=== PATIENT | male | born 1940 | race Caucasian/White ===

== ENCOUNTER 2017-07-18 17:05 | Emergency (ER) | payer MEDICARE ==
--- NOTE | 2017-07-18 17:18 | UC ---
Epistaxis Nasal HPI - HPI Summary HPI Summary: 76 year old male with right sided nose bleed. - History of Current Complaint Stated Complaint: NOSE BLEEDS (ON BLOOD THINNERS) Time Seen by Provider: 07/18/17 17:17 Hx Obtained From: Patient Onset/Duration: Sudden Onset Timing: Constant Severity Initially: Moderate Severity Currently: Moderate - Allergies/Home Medications Allergies/Adverse Reactions: Allergies Allergy/AdvReac Type Severity Reaction Status Date / Time Azithromycin Allergy Rash Verified 07/18/17 17:22 Clopidogrel [From Plavix] Allergy Unknown Verified 07/18/17 17:22 Reaction Details Ezetimibe [From Zetia] Allergy Unknown Verified 07/18/17 17:22 Reaction Details Statins Allergy Muscle Ache Verified 07/18/17 17:22 Home Medications: Home Medications Carvedilol [Coreg] 12.5 mg PO BID 07/18/17 [History Confirmed 07/18/17] PMH/Surg Hx/FS Hx/Imm Hx Previously Healthy: Yes - Surgical History Surgical History: Yes Surgery Procedure, Year, and Place: stents, quadruple bypass - Social History Alcohol Use: None Substance Use Type: None Smoking Status (MU): Never Smoked Tobacco Review of Systems Constitutional: Negative Skin: Negative Eyes: Negative ENT: Epistaxis Respiratory: Negative Cardiovascular: Negative Gastrointestinal: Negative Genitourinary: Negative Motor: Negative Neurovascular: Negative Musculoskeletal: Negative Neurological: Negative Psychological: Negative All Other Systems Reviewed And Are Negative: Yes Physical Exam Triage Information Reviewed: Yes Vital Signs Reviewed: Yes Eye Exam: Normal ENT: Positive: Other - right sided nose bleed Dental Exam: Normal Neck exam: Normal Neck: Positive: 1 Respiratory Exam: Normal Cardiovascular Exam: Normal Abdominal Exam: Normal Musculoskeletal Exam: Normal Neurological Exam: Normal Psychological Exam: Normal Skin Exam: Normal Epistaxis Nasal Course/Dx - Differential Dx/Diagnosis Provider Diagnoses: right sided nose bleed Discharge - Discharge Plan Condition: Stable Disposition: HOME Patient Education Materials: Nosebleed (ED) Referrals: Shaquille Manriquez MD [Medical Doctor] - Pita Morales MD [Primary Care Provider] -
[2017-07-18 17:22] VITALS: BP 158/70
[2017-07-18] MEDS ORDERED: Phenylephrine 1% NASAL* 15 ML BOT RIGHT NARE ONE (17:40)
[2017-07-18] MEDS ORDERED: Phenylephrine 1% NASAL* 15 ML BOT ONE (17:42)
== END 2017-07-18 18:04 | disposition home or self-care (01) ==
LOC: UCCORT 17:05
DX: R04.0 Epistaxis (principal); Z88.1 Allergy status to other antibiotic agents; Z88.8 Allergy status to other drugs, medicaments and biological substances
CPT/HCPCS: 30901; 99212; A9270-GY; G0463

== ENCOUNTER 2017-11-21 14:34 | Emergency (ER) | payer MEDICARE ==
[2017-11-21 19:09] LABS: ABS Basophils 0.1 10^3/ul (0-0.2); ABS Eosinophils 0.3 10^3/ul (0-0.6); ABS Lymphocytes 0.6 10^3/ul (1.0-4.8); ABS Monocytes 0.8 10^3/ul (0-0.8); ABS Neutrophils 3.3 10^3/ul (1.5-7.7); ABS Nucleated RBC 0 10^3/ul; Eosinophil % 5.1 % (0-6); Hematocrit 34 % (42-52); Hemoglobin 11.8 g/dl (14.0-18.0); Lymphocyte % 12.5 % (25-47); Mean Corpuscular HGB Conc 35 g/dl (31-36); Mean Corpuscular Hemoglobin 31 pg (27-31); Mean Corpuscular Volume 88 fL (80-94); Nucleated Red Blood Cells % 0.1; Platelet Count 174 10^3/ul (150-450); Red Blood Count 3.87 10^6/ul (4.0-5.4); Red Cell Distribution Width 15 % (10.5-15)
[2017-11-21 19:21] LABS: INR 1.34 (0.77-1.02)
[2017-11-21 19:25] LABS: EGFR Non-African American 92.4 (>60)
--- NOTE | 2017-11-21 19:28 | RAD ---
Indication: Shortness of breath post fall yesterday. Increased bilateral lower extremity swelling. Comparison: June 14, 2017 CT and August 11, 2014 chest radiograph. Technique: Upright AP 1914 hours Report: Median sternotomy wires. Cardiomegaly which appears increased. Prominent ill-defined central pulmonary vasculature and mild diffuse prominence of the interstitial markings with subtle thickened peripheral interlobular septa. Probable trace pleural effusions. Negative for pneumothorax. No fracture evident. IMPRESSION: Pulmonary vascular congestion and interstitial edema.
--- NOTE | 2017-11-21 19:52 | ED ---
Lower Extremity - HPI Summary HPI Summary: Patient sent to the ED by strap setter for evaluation of multiple complaints. Complains of progressive exertional SOB x 1 month. Denies CP. Complains of increase in bilateral lower leg edema, abdominal swelling. HX of same 2 months since being started on amlodipine. Denies lower extremity pain Complains of fall yesterday, and PCP wanting evaluation of fall due to patient being on Eliquis. Patient denies head injury, LOC. Only symptoms related to fall = minor ecchymosis to right chest wall. Denies fever, cough, sore throat, CP, N/V/D, abdominal pain, change in urine or BM. Medical history is [place] 3, CABG 2, stents 7, DM, HTN, HDL, CHF. No history of blood clot. Patient takes furosemide 20 MG twice a week. Sees cardiology every 6 months. States has been years since last catheter or stress test. - History of Current Complaint Chief Complaint: EDGeneral Stated Complaint: SOB Time Seen by Provider: 11/21/17 17:46 Hx Obtained From: Patient, Family/Blueprint Duplicator Severity Initially: Mild Pain Intensity: 0 Pain Scale Used: 0-10 Numeric - Allergies/Home Medications Allergies/Adverse Reactions: Allergies Allergy/AdvReac Type Severity Reaction Status Date / Time azithromycin Allergy Rash Verified 11/21/17 14:39 clopidogrel Allergy Unknown Verified 11/21/17 14:39 Reaction Details ezetimibe [From Zetia] Allergy Unknown Verified 11/21/17 14:39 Reaction Details [id number] Reductase Allergy Muscle Ache Verified 11/21/17 14:39 Inhibitor Home Medications: Home Medications Apixaban* [Eliquis*] 5 mg PO BID 11/21/17 [History Confirmed 11/21/17] Ascorbic Acid TAB* [Vitamin C TAB*] 1,000 mg PO DAILY 11/21/17 [History Confirmed 11/21/17] Aspirin EC TAB* [Ecotrin EC Low Dose 81 MG*] 81 mg PO DAILY 11/21/17 [History Confirmed 11/21/17] Carvedilol TAB* [Coreg TAB*] 12.5 mg PO BID 11/21/17 [History Confirmed 11/21/17 ] Cholecalciferol TAB* [Vitamin D TAB*] 200 unit PO DAILY 11/21/17 [History Confirmed 11/21/17] Colesevelam(NF) [Welchol(NF)] 1,250 mg PO BID 11/21/17 [History Confirmed ] Food Enzymes 2 tab PO TID 11/21/17 [History Confirmed 11/21/17] Furosemide TAB* [Lasix TAB*] 20 mg PO SUTU 11/21/17 [History Confirmed 11/21/17] Krill/[place]-3/Dha/Epa/Lipids [Krill Oil 300 mg Softgel] 1 cap PO BID 11/21/17 [ History Confirmed 11/21/17] L.acidoph,Paracasei, B.lactis [Probiotic] 3 cap PO DAILY 11/21/17 [History Confirmed 11/21/17] Losartan TAB* [Cozaar TAB*] 50 mg PO DAILY 11/21/17 [History Confirmed 11/21/17] Magnesium Oxide [Magnesium] 250 mg PO BID 11/21/17 [History Confirmed 11/21/17] Mineral Chi Toxic 1 tbsp PO DAILY 11/21/17 [History Confirmed 11/21/17] Ranolazine (NF) [Ranexa (NF)] 1,000 mg PO BID 11/21/17 [History Confirmed ] Vitamin E CAP* 400 unit PO DAILY 11/21/17 [History Confirmed 11/21/17] amLODIPine TAB* [Norvasc 5 mg TAB*] 2.5 mg PO DAILY 11/21/17 [History Confirmed 11/21/17] glipiZIDE [Glipizide ER] 10 mg PO DAILY 11/21/17 [History Confirmed 11/21/17] PMH/Surg Hx/FS Hx/Imm Hx Endocrine/Hematology History: Reports: Hx Diabetes Cardiovascular History: Reports: Hx Hypertension - Surgical History Surgery Procedure, Year, and Place: stents, quadruple bypass Infectious Disease History: No Infectious Disease History: Denies: Traveled Outside the [place] in Last 30 Days - Social History Alcohol Use: None Substance Use Type: Reports: None Smoking Status (MU): Never Smoked Tobacco Review of Systems Constitutional: Negative Eyes: Negative ENT: Negative Cardiovascular: Negative Positive: Shortness Of Breath Gastrointestinal: Negative Genitourinary: Negative Musculoskeletal: Negative Positive: Bruising Neurological: Negative Psychological: Normal All Other Systems Reviewed And Are Negative: Yes Physical Exam - Summary Physical Exam Summary: Areas of minor ecchymosis to right sided chest wall. No evidence of rib deformity. Bilateral lower extremities positive for edema, negative for erythema, extra warmth, tenderness, loss of range of motion, evidence of trauma. Lung sounds CTAB. Triage Information Reviewed: Yes Vital Signs On Initial Exam: Initial Vitals Temp Pulse Resp BP Pulse Ox 98.3 F 66 14 135/68 95 11/21/17 14:39 11/21/17 14:39 11/21/17 14:39 11/21/17 14:39 11/21/17 14:39 Vital Signs Reviewed: Yes Appearance: Positive: Well-Appearing Skin: Positive: Warm Head/Face: Positive: Normal Head/Face Inspection Eyes: Positive: Normal Neck: Positive: Supple Respiratory/Lung Sounds: Positive: Clear to Auscultation Cardiovascular: Positive: Murmur Abdomen Description: Positive: Nontender Musculoskeletal: Positive: Normal Neurological: Positive: Normal Psychiatric: Positive: Normal AVPU Assessment: Alert - [place] Coma Scale Best Eye Response: 4 - Spontaneous Best Motor Response: 6 - Obeys Commands Best Verbal Response: 5 - Oriented Coma Scale Total: 15 Diagnostics - Vital Signs Vital Signs Temp Pulse Resp BP Pulse Ox 11/21/17 19:00 16 11/21/17 18:57 66 19 163/84 95 11/21/17 18:27 65 27 168/83 96 11/21/17 18:00 66 23 96 11/21/17 17:58 65 28 172/86 97 11/21/17 17:57 66 21 97 11/21/17 16:38 99.4 F 69 22 172/65 95 11/21/17 14:39 98.3 F 66 14 135/68 95 - Laboratory Lab Results: Lab Results 11/21/17 11/21/17 11/21/17 Range/Units 18:21 18:56 18:56 WBC 5.0 (3.5-10.8) 10^3/ul RBC 3.87 L (4.0-5.4) 10^6/ul Hgb 11.8 L (14.0-18.0) g/dl Hct 34 L (42-52) % MCV 88 (80-94) fL MCH 31 (27-31) pg MCHC 35 (31-36) g/dl RDW 15 (10.5-15) % Plt Count 174 (150-450) 10^3/ul MPV 7.0 L (7.4-10.4) um3 Neut % (Auto) 65.3 (38-83) % Lymph % (Auto) 12.5 L (25-47) % Butts % (Auto) 15.8 H (0-7) % Eos % (Auto) 5.1 (0-6) % Baso % (Auto) 1.3 (0-2) % Absolute Neuts (auto) 3.3 (1.5-7.7) 10^3/ul Absolute Lymphs (auto) 0.6 L (1.0-4.8) 10^3/ul Absolute Monos (auto) 0.8 (0-0.8) 10^3/ul Absolute Eos (auto) 0.3 (0-0.6) 10^3/ul Absolute Basos (auto) 0.1 (0-0.2) 10^3/ul Absolute Nucleated RBC 0 10^3/ul Nucleated RBC % 0.1 INR (Anticoag Therapy) 1.34 H (0.77-1.02) APTT 34.9 (26.0-36.3) seconds Sodium (139-145) mmol/L Potassium (3.5-5.0) mmol/L Chloride (101-111) mmol/L Carbon Dioxide (22-32) mmol/L Anion Gap (2-11) mmol/L BUN (6-24) mg/dL Creatinine (0.67-1.17) mg/dL Est GFR ( Amer) (>60) Est GFR (Non-Af Amer) (>60) BUN/Creatinine Ratio (8-20) Glucose (70-100) mg/dL Lactic Acid (0.5-2.0) mmol/L Calcium (8.6-10.3) mg/dL Total Bilirubin (0.2-1.0) mg/dL AST (13-39) U/L ALT (7-52) U/L Alkaline Phosphatase (34-104) U/L Troponin I (<0.04) ng/mL B-Natriuretic Peptide 623 H ( - 100) pg/mL Total Protein (6.4-8.9) g/dL Albumin (3.2-5.2) g/dL Globulin (2-4) g/dL Albumin/Globulin Ratio (1-3) 11/21/17 11/21/17 Range/Units 18:56 18:56 WBC (3.5-10.8) 10^3/ul RBC (4.0-5.4) 10^6/ul Hgb (14.0-18.0) g/dl Hct (42-52) % MCV (80-94) fL MCH (27-31) pg MCHC (31-36) g/dl RDW (10.5-15) % Plt Count (150-450) 10^3/ul MPV (7.4-10.4) um3 Neut % (Auto) (38-83) % Lymph % (Auto) (25-47) % Butts % (Auto) (0-7) % Eos % (Auto) (0-6) % Baso % (Auto) (0-2) % Absolute Neuts (auto) (1.5-7.7) 10^3/ul Absolute Lymphs (auto) (1.0-4.8) 10^3/ul Absolute Monos (auto) (0-0.8) 10^3/ul Absolute Eos (auto) (0-0.6) 10^3/ul Absolute Basos (auto) (0-0.2) 10^3/ul Absolute Nucleated RBC 10^3/ul Nucleated RBC % INR (Anticoag Therapy) (0.77-1.02) APTT (26.0-36.3) seconds Sodium 126 L (139-145) mmol/L Potassium 4.0 (3.5-5.0) mmol/L Chloride 93 L (101-111) mmol/L Carbon Dioxide 25 (22-32) mmol/L Anion Gap 8 (2-11) mmol/L BUN 9 (6-24) mg/dL Creatinine 0.81 (0.67-1.17) mg/dL Est GFR ( Amer) 118.8 (>60) Est GFR (Non-Af Amer) 92.4 (>60) BUN/Creatinine Ratio 11.1 (8-20) Glucose 97 (70-100) mg/dL Lactic Acid 1.2 (0.5-2.0) mmol/L Calcium 9.3 (8.6-10.3) mg/dL Total Bilirubin 0.90 (0.2-1.0) mg/dL AST 18 (13-39) U/L ALT 13 (7-52) U/L Alkaline Phosphatase 43 (34-104) U/L Troponin I 0.01 (<0.04) ng/mL B-Natriuretic Peptide ( - 100) pg/mL Total Protein 7.8 (6.4-8.9) g/dL Albumin 4.3 (3.2-5.2) g/dL Globulin 3.5 (2-4) g/dL Albumin/Globulin Ratio 1.2 (1-3) Result Diagrams: 11/21/17 18:56 11/21/17 18:56 Lab Statement: Any lab studies that have been ordered have been reviewed, and results considered in the medical decision making process. - Radiology cxr Xray Interpretation: Positive (See Comments) - Vascular congestion, interstitial edema, increasing cardiomegaly Radiology Interpretation Completed By: Radiologist - EKG 1 Cardiac Rate: NL EKG Rhythm: Sinus Rhythm ST Segment: Non-Specific Ectopy: None Lower Extremity Course/Dx - Course Course Of Treatment: Mildly elevated BNP. Chest x-ray shows some interstitial edema, vascular congestion. ABG within normal limits. Vital signs within normal limits. Patient on eliquis. Mild small areas of ecchymosis to right side chest wall, no significant hematoma. Chest x-ray has no indication of significant trauma. INR 1.3. Bilateral lower extremity pitting edema. Lasix 20 makes IV here in the ED. We'll advise patient to take 20 makes lasix by mouth for 3 days and follow-up with primary care and cardiology - Diagnoses Provider Diagnoses: Fall, Shortness of breath Discharge - Sign-Out/Discharge Documenting (check all that apply): Discharge/Admit/Transfer - Discharge Plan Condition: Stable Disposition: HOME Patient Education Materials: Leg Edema (ED), Fall Prevention (ED) Referrals: Pita Morales MD [Primary Care Provider] - Additional Instructions: Take Lasix (furosemide) 20 MG by mouth daily for the next 3 days. Follow-up with primary care and cardiology for further evaluation of bilateral leg swelling. Return to the ED for any new or worsening symptoms - Billing Disposition and Condition Condition: STABLE Disposition: HOME
[2017-11-21] MEDS ORDERED: Furosemide IV* 10 MG/ML 2 ML VIAL (20 MG) IV ONE (21:39)
[2017-11-21 23:04] VITALS: BP 167/80
== END 2017-11-21 23:21 | disposition home or self-care (01) ==
LOC: ED 14:34
DX: R06.02 Shortness of breath (principal); R60.0 Localized edema; R09.89 Other specified symptoms and signs involving the circulatory and respiratory systems; I51.7 Cardiomegaly; Z91.81 History of falling; Z95.1 Presence of aortocoronary bypass graft; Z95.5 Presence of coronary angioplasty implant and graft; Z88.3 Allergy status to other anti-infective agents; Z88.8 Allergy status to other drugs, medicaments and biological substances
CPT/HCPCS: 36415; 71045; 80053; 82803; 83605; 83880; 84484; 85025; 85610; 85730; 93005; 96374; 99283; J1940

== ENCOUNTER 2018-04-10 15:01 | Inpatient (IN) | payer MEDICARE ==
--- OUTSIDE RECORDS SUMMARY | 2018-04-10 15:59 | XMS REPORT ---
:1940 External Reference #:[id number] Author Organization [email or web address] Address [address] [place] [address] Phone [phone] Care Team Providers Name Role Phone Pita Sams MD Primary Care Physician Unavailable Payers Type Date Identification Numbers Payment Provider Subscriber Medicare Primary Effective: Policy Number: Medicare Aditya Zamudio 2005 [id number] PayID: [id number] [address] [place] [address] [facility] Part B Policy Number: [id number] [facility] Aditya Zamudio PayID: [id number] [address] [place] [address] Problems Date Description Provider Status Onset: 10/06/2015 Diabetes mellitus Ariana Hamilton M.D. Active Onset: 10/06/2015 Essential hypertension Ariana Hamilton M.D. Active Onset: 10/06/2015 Mixed hyperlipidemia Ariana Hamilton M.D. 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 Active bypass graft Onset: 08/04/2016 Chronic ischemic heart disease Ariana Hamilton M.D. Active Onset: 08/04/2016 Edema Ariana Hamilton M.D. Active Onset: 08/04/2016 Paroxysmal atrial fibrillation Ariana Hamilton M.D. Active Onset: 10/18/2016 Aortic valve disorder Ariana Hamilton M.D. 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 Family History Date Family Member(s) Problem(s) Comments General Heart Disease General Diabetes Father due to NV () - age 62 Mother due to Aneurysm () - age 70 First Brother NV age 62 First Sister Hypercholesterolemia Social History Type Date Description Comments Marital Status Lives With Occupation Retired Cigarette Use Former Cigarette Smoker ETOH Use Denies alcohol use Recreational Drug Use Never Used Drugs Smoking Patient is a former smoker Daily Caffeine Does Not Consume Caffeine Exercise Type/Frequency Does not exercise General Hx Text Do you follow a special diet: low sodium , diabetic diet, fresh vegetables Do you have problems with snoring, daytime fatigue: no snoring, no daytime. Patient states he breaths shallow. Allergies, Adverse Reactions, Alerts Date Description Reaction Status Severity Comments 10/06/2015 Statins myalgias active 10/06/2015 Plavix Urticaria active 10/06/2015 Zetia excess salivation active 10/06/2015 Azithromycin Urticaria active 10/02/2015 NKDA inactive Medications Medication Date Status Form Strength Qnty SIG Indications Ordering Provider Eliquis 08/15 Active Tablets 5mg 180ta 1 by mouth bs twice a day Stone Hamilton Carvedilol 12/29 Active Tablets 12.5mg 180ta 1/2 tab by I42.9 bs mouth twice a Joy, day M.D. Amiodarone HCL 10/18 Active Tablets 200mg 90tab 1 tab by mouth I48.0 Ariana s every day. Stone Hamilton Furosemide 08/12 Active Tablets 20mg 30tab 1 tab every R60.9 s other day , Joy, alternate with M.D. spironolactone Spironolactone 08/12 Active Tablets 25mg 30tab 1/2 tablet R60.9 s tablet qod and Joy, as directed( M.D. alternate day of furosemide) Aspirin Low 00 Active Chewtabs 81mg 1 by mouth Unknown Strength every day Glipizide ER Active Tablets 10mg 1/2 tablet by Unknown ER 24HR mouth daily Losartan Active Tablets 50mg 180ta 1 by mouth Ariana Potassium bs daily Stone Hamilton Ranexa Active Tablets 1000mg 1 tab by mouth Unknown ER 12HR twice a day Vitamin C Active Tablets 1000mg 1 by mouth Unknown every day Magnesium Oxide Active Tablets 250mg 1 po bid Vitamin D Active 100mcg 2 tablet po daily Cardiox LDL Active 2 caps po Unknown daily Probiotic Daily Active Capsules 3 by mouth Unknown every day Krill Oil Active 300mg 1 table po Unknown daily Liquid Active daily Unknown Food Enzymes Active 2 tabs 3 times Unknown a day Mineral Chi Active Liquid 1 Tbls daily Unknown Vitamin E With Active 400Iu 1 cap po daily Unknown Amlodipine 08/14 Hx Tablets 2.5mg 90tab 1 by mouth I10 Ariana Besylate s every day Gela Hamilton M.DFabrice 11/24 Potassium 10/31 Hx Tablets 10Meq 2 tabs by ER mouth 3X every - day (pt has 07/21 not taking) Warfarin Sodium 09/02 Hx Tablets 5mg 60tab 1 tab or 2 Ariana s tab by mouth Joy, - daily as M.D. 08/15 Xarelto 08/04 Hx Tablets 20mg 30tab 1 by mouth I48.0 Ariana /2016 s every day ( Pt Joy, - did not start M.D. 08/23 taking Metoprolol 08/04 Hx Tablets 50mg 90tab 1 by mouth I42.9 Ariana Succinate ER ER 24HR s every day Joy - M.DFabrice 12/29 Welchol 12/24 Hx Tablets 625mg 540ta 3 tabs by Ariana /2015 bs mouth twice a Joy, - day M.D. 12/20 Repatha 11/17 Hx Solution 140mg/ml 2ml inject once Ariana Duggan Auto-Inje every 2 weeks Gela Hamilton M.D. 12/20 Isosorbide Hx Tablets 30mg 1 by mouth Unknown Mononitrate ER /0000 ER 24HR every day - 01/26 Krill Oil Plus Hx Capsules 2 capsules Unknown /0000 twice daily - 08/07 Probiotic Hx Capsules 1 by mouth Unknown /0000 twice a day - 08/07 Victoza Hx Solution 18mg/3ML inject 1.2 mg Unknown /0000 Pen-Injec under the skin - t daily (pt not 09/06 taking Combination Hx 84mg 2 tabs tid Unknown Potassium / - 09/06 Folic Acid Hx Tablets 800mcg 1 by mouth Unknown /0000 every day - 08/03 Circulatory Hx Daily Unknown System Pack / - 08/03 Cardiacs LDL Hx 2 daily Unknown /0000 - 09/17 Amoxicillin/Cla Hx Tablets 875-125mg TK 1 T PO bid Unknown vulanate /0000 Potassium - 08/13 Vital Signs Date Vital Result Comment 03/16/2018 Height 69.5 inches 5'9.50" Weight 182.19 lb Heart Rate 60 /min BP Systolic Sitting 110 mmHg lue reg cuff BP Diastolic Sitting 52 mmHg lue reg cuff Respiratory Rate 16 /min BMI (Body Mass Index) 26.5 kg/m2 Ejection Fraction 45-50% 12/01/2017 echo 03/02/2018 Height 69.5 inches 5'9.50" Weight 196.00 lb Heart Rate 74 /min BP Systolic Sitting 136 mmHg BP Diastolic Sitting 82 mmHg BP Systolic Standing 138 mmHg BP Diastolic Standing 80 mmHg Pain Level 0 BMI (Body Mass Index) 28.5 kg/m2 01/11/2018 Height 69.5 inches 5'9.50" Weight 187.00 lb Heart Rate 64 /min BP Systolic Sitting 134 mmHg Lue large cuff BP Diastolic Sitting 84 mmHg Lue large cuff BP Systolic Standing 140 mmHg Lue BP Diastolic Standing 90 mmHg Lue Respiratory Rate 16 /min BMI (Body Mass Index) 27.2 kg/m2 Ejection Fraction 45-50% 12/01/17 12/05/2017 Height 69.5 inches 5'9.50" Weight 185.00 lb with shoes Heart Rate 60 /min BP Systolic Sitting 130 mmHg Rue reg cuff BP Diastolic Sitting 70 mmHg Rue reg cuff BP Systolic Standing 134 mmHg Rue reg cuff BP Diastolic Standing 70 mmHg Rue reg cuff Respiratory Rate 16 /min BMI (Body Mass Index) 26.9 kg/m2 Ejection Fraction 45-50% 12/01/17 ECHO 11/24/2017 Height 69.5 inches 5'9.50" Weight 198.00 lb w/ clothes and shoes Heart Rate 64 /min BP Systolic Sitting 138 mmHg lue rg cuff BP Diastolic Sitting 68 mmHg lue rg cuff BP Systolic Standing 128 mmHg lue rg cuff BP Diastolic Standing 72 mmHg lue rg cuff Respiratory Rate 22 /min BMI (Body Mass Index) 28.8 kg/m2 Ejection Fraction 45-50% echo 03/08/17 09/07/2017 Height 69.5 inches 5'9.50" Weight 186.00 lb No shoes Heart Rate 64 /min BP Systolic Sitting 148 mmHg Lue reg cuff BP Diastolic Sitting 84 mmHg Lue reg cuff BP Systolic Standing 136 mmHg Lue reg cuff BP Diastolic Standing 90 mmHg Lue reg cuff Respiratory Rate 16 /min BMI (Body Mass Index) 27.1 kg/m2 Ejection Fraction 45-50% 03/08/2017-echo 08/14/2017 Height 69.5 inches 5'9.50" Weight 187.00 lb no shoes Heart Rate 64 /min BP Systolic 144 mmHg Lue reg cuff BP Diastolic 74 mmHg Lue reg cuff BP Systolic Sitting 150 mmHg Lue reg cuff BP Diastolic Sitting 82 mmHg Lue reg cuff Respiratory Rate 16 /min BMI (Body Mass Index) 27.2 kg/m2 07/20/2017 Height 69.5 inches 5'9.50" Weight 188.00 lb No shoes Heart Rate 74 /min BP Systolic Sitting 160 mmHg Rue reg cuff BP Diastolic Sitting 80 mmHg Rue reg cuff BP Systolic Standing 166 mmHg Rue reg cuff BP Diastolic Standing 84 mmHg Rue reg cuff Respiratory Rate 17 /min BMI (Body Mass Index) 27.4 kg/m2 Ejection Fraction 45-50% 03/08/2017-echo 04/18/2017 Height 69.5 inches 5'9.50" Weight 206.00 lb with shoes Heart Rate 74 /min BP Systolic Sitting 146 mmHg Lue reg cuff BP Diastolic Sitting 76 mmHg Lue reg cuff BP Systolic Standing 152 mmHg Lue reg cuff BP Diastolic Standing 84 mmHg Lue reg cuff Respiratory Rate 17 /min BMI (Body Mass Index) 30.0 kg/m2 Ejection Fraction 45-50% 03/08/2017-echo 01/27/2017 Height 69.5 inches 5'9.50" Weight 200.00 lb with shoes Heart Rate 76 /min BP Systolic Sitting 170 mmHg Rue reg cuff BP Diastolic Sitting 60 mmHg Rue reg cuff BP Systolic Standing 156 mmHg Rue reg cuff BP Diastolic Standing 60 mmHg Rue reg cuff Respiratory Rate 16 /min BMI (Body Mass Index) 29.1 kg/m2 12/29/2016 Height 69.5 inches 5'9.50" Weight 202.00 lb with shoes Heart Rate 68 /min BP Systolic Sitting 152 mmHg Rue reg cuff BP Diastolic Sitting 78 mmHg Rue reg cuff BP Systolic Standing 156 mmHg Rue BP Diastolic Standing 80 mmHg Rue Respiratory Rate 16 /min BMI (Body Mass Index) 29.4 kg/m2 Ejection Fraction 25-30% 12/06/16 11/17/2016 Height 69.5 inches 5'9.50" Weight 200.00 lb with shoes Heart Rate 64 /min BP Systolic Sitting 130 mmHg Rue reg cuff BP Diastolic Sitting 70 mmHg Rue reg cuff BP Systolic Standing 132 mmHg Rue reg cuff BP Diastolic Standing 66 mmHg Rue reg cuff Respiratory Rate 16 /min BMI (Body Mass Index) 29.1 kg/m2 Ejection Fraction 30-35% date 09/21/2016 David 11/01/2016 Height 69.5 inches 5'9.50" Weight 202.00 lb with shoes Heart Rate 90 /min irreg BP Systolic Sitting 120 mmHg Lue reg cuff BP Diastolic Sitting 82 mmHg Lue reg cuff Respiratory Rate 16 /min BMI (Body Mass Index) 29.4 kg/m2 Ejection Fraction 35-40% date 08/03/16 ECHO 10/18/2016 Height 69.5 inches 5'9.50" Weight 200.00 lb no shoes Heart Rate 78 /min BP Systolic Sitting 134 mmHg Rue reg cuff BP Diastolic Sitting 84 mmHg Rue reg cuff BP Systolic Standing 138 mmHg Rue reg cuff BP Diastolic Standing 90 mmHg Rue reg cuff Respiratory Rate 17 /min BMI (Body Mass Index) 29.1 kg/m2 Ejection Fraction 35-40% 08/03/2016-echo 08/23/2016 Height 69.5 inches 5'9.50" Weight 199.75 lb with shoes Heart Rate 104 /min irreg BP Systolic 136 mmHg Rue reg cuff BP Diastolic 82 mmHg Rue reg cuff BP Systolic Sitting 124 mmHg Lue reg cuff BP Diastolic Sitting 80 mmHg Lue reg cuff BP Systolic Standing 156 mmHg Lue reg cuff BP Diastolic Standing 84 mmHg Lue reg cuff Respiratory Rate 17 /min BMI (Body Mass Index) 29.1 kg/m2 Ejection Fraction 35-40% date 08/03/16 ECHO 08/12/2016 Height 69.5 inches 5'9.50" Weight 199.00 lb no shoes Heart Rate 90 /min BP Systolic Sitting 132 mmHg Rue reg cuff BP Diastolic Sitting 78 mmHg Rue reg cuff BP Systolic Standing 136 mmHg Rue reg cuff BP Diastolic Standing 82 mmHg Rue reg cuff Respiratory Rate 18 /min BMI (Body Mass Index) 29.0 kg/m2 Ejection Fraction 35-40% 08/03/2016 08/04/2016 Height 69.5 inches 5'9.50" Weight 200.00 lb Heart Rate 84 /min BP Systolic Sitting 136 mmHg left arm, reg cuff BP Diastolic Sitting 82 mmHg left arm, reg cuff BP Systolic Standing 130 mmHg left arm, reg cuff BP Diastolic Standing 86 mmHg left arm, reg cuff Respiratory Rate 20 /min BMI (Body Mass Index) 29.1 kg/m2 Ejection Fraction 35-40% 08/03/16 11/17/2015 Height 69.5 inches 5'9.50" Weight 198.00 lb w/ shoes Heart Rate 88 /min reg BP Systolic Sitting 130 mmHg Lue, reg cuff BP Diastolic Sitting 86 mmHg Lue, reg cuff BP Systolic Standing 136 mmHg Lue, reg cuff BP Diastolic Standing 84 mmHg Lue, reg cuff Respiratory Rate 18 /min BMI (Body Mass Index) 28.8 kg/m2 10/06/2015 Height 69.5 inches 5'9.50" Weight 194.00 lb w/o shoes Heart Rate 70 /min reg BP Systolic 120 mmHg Lue, reg cuff BP Diastolic 86 mmHg Lue, reg cuff BP Systolic Sitting 130 mmHg Rue, reg cuff BP Diastolic Sitting 90 mmHg Rue, reg cuff BP Systolic Standing 124 mmHg Lue, reg cuff BP Diastolic Standing 84 mmHg Lue, reg cuff Respiratory Rate 18 /min BMI (Body Mass Index) 28.2 kg/m2 Results Test Date Test Result H/L Range Note CBC Auto Diff 03/02/2018 White Blood Count 6.1 10^3/uL 3.5-10.8 Red Blood Count 4.07 10^6/uL 4.00-5.40 Hemoglobin 12.2 g/dL Low 14.0-18.0 Hematocrit 36 % Low 42-52 Mean Corpuscular Volume 89 fL 80-94 Mean Corpuscular Hemoglobin 30 pg 27-31 Mean Corpuscular HGB Conc 34 g/dL 31-36 Red Cell Distribution Width 16 % High 10.5-15 Platelet Count 178 10^3/uL 150-450 Mean Platelet Volume 7.6 um3 7.4-10.4 Abs Neutrophils 3.9 10^3/uL 1.5-7.7 Abs Lymphocytes 0.9 10^3/uL Low 1.0-4.8 Abs Monocytes 1.0 10^3/uL High 0-0.8 Abs Eosinophils 0.2 10^3/uL 0-0.6 Abs Basophils 0.1 10^3/uL 0-0.2 Abs Nucleated RBC 0 10^3/uL Granulocyte % 63.9 % 38-83 Lymphocyte % 14.7 % Low 25-47 Monocyte % 16.8 % High 0-7 Eosinophil % 3.5 % 0-6 Basophil % 1.1 % 0-2 Nucleated Red Blood Cells % 0.1 Basic Metabolic Panel 03/02/2018 Sodium 129 mmol/L Low 135-145 Potassium 4.7 mmol/L 3.5-5.0 Chloride 95 mmol/L Low 101-111 Co2 Carbon Dioxide 27 mmol/L 22-32 Anion Gap 7 mmol/L 2-11 Glucose 88 mg/dL 70-100 Blood Urea Nitrogen 18 mg/dL 6-24 Creatinine 1.08 mg/dL 0.67-1.17 BUN/Creatinine Ratio 16.7 8-20 Calcium 9.4 mg/dL 8.6-10.3 Egfr Non- 66.3 >60 Egfr 80.2 >60 1 Laboratory test finding 03/02/2018 Magnesium 1.9 mg/dL 1.9-2.7 B-Type Natriuretic Peptide BNP 939 pg/mL High 2 Comp Metabolic Panel 07/20/2017 Sodium 123 mmol/L Low 133-145 3 Potassium 3.8 mmol/L 3.5-5.0 3 Chloride 90 mmol/L Low 101-111 3 Co2 Carbon Dioxide 25 mmol/L 22-32 3 Anion Gap 8 mmol/L 2-11 3 Glucose 143 mg/dL High 70-100 3 Blood Urea Nitrogen 10 mg/dL 6-24 3 Creatinine 0.84 mg/dL 0.67-1.17 3 BUN/Creatinine Ratio 11.9 8-20 3 Calcium 9.1 mg/dL 8.6-10.3 3 Total Protein 7.5 g/dL 6.4-8.9 3 Albumin 4.1 g/dL 3.2-5.2 3 Globulin 3.4 g/dL 2-4 3 Albumin/Globulin Ratio 1.2 1-3 3 Total Bilirubin 0.90 mg/dL 0.2-1.0 3 Alkaline Phosphatase 40 U/L 34-104 3 Alt 17 U/L 7-52 3 Ast 19 U/L 13-39 3 Egfr Non- 88.8 >60 3 Egfr 114.3 >60 3, 4 CBC Auto Diff 07/20/2017 White Blood Count 6.3 10^3/uL 3.5-10.8 3 Red Blood Count 4.19 10^6/uL 4.0-5.4 3 Hemoglobin 12.4 g/dL Low 14.0-18.0 3 Hematocrit 36 % Low 42-52 3 Mean Corpuscular Volume 86 fL 80-94 3 Mean Corpuscular Hemoglobin 30 pg 27-31 3 Mean Corpuscular HGB Conc 35 g/dL 31-36 3 Red Cell Distribution Width 15 % 10.5-15 3 Platelet Count 166 10^3/uL 150-450 3 Mean Platelet Volume 7 um3 Low 7.4-10.4 3 Inr/Protime 07/20/2017 Inr 2.40 High 0.77-1.02 3 Manual Differential 07/20/2017 Neutrophil % 66 % 38-83 3 Lymphocytes % 15 % Low 25-47 3 Monocytes % 10 % 0-13 3 Eosinophils % 9 % High 0-6 3 Basophil % 0 % 0-2 3 Abs Neutrophils 4.2 10^3/uL 1.5-7.7 3 Abs Eosinophils 0.6 10^3/uL 0-0.6 3 Abs Basophils 0 10^3/uL 0-0.2 3 RBC Morphology Normal Normal 3 Abs Monocytes 0.6 10^3/uL 0-0.8 3 Abs Lymphocytes 0.9 10^3/uL Low 1.0-4.8 3 Laboratory test finding 07/20/2017 Pathologist Review (SEE NOTE) 3, 5 Protime W/ Inr 06/30/2017 Prothrombin Time <pending> Inr <pending> Laboratory test finding 09/21/2016 Magnesium 1.8 mg/dL Low 1.9-2.7 Basic Metabolic Panel 09/21/2016 Sodium 134 mmol/L 133-145 Potassium 4.2 mmol/L 3.5-5.0 Chloride 97 mmol/L Low 101-111 Co2 Carbon Dioxide 27 mmol/L 22-32 Anion Gap 10 mmol/L 2-11 Glucose 128 mg/dL High 70-100 Blood Urea Nitrogen 14 mg/dL 6-24 Creatinine 1.12 mg/dL 0.67-1.17 BUN/Creatinine Ratio 12.5 8-20 Calcium 10.0 mg/dL 8.6-10.3 Egfr Non- 63.7 >60 Egfr 82.0 >60 6 1 Because ethnic data is not always readily available, this report includes an eGFR for both -Americans and non- Americans. The National Kidney Disease Education Program (NKDEP) does not endorse the use of the MDRD equation for patients that are not between the ages of 18 and 70, are , have extremes of body size, muscle mass, or nutritional status, or are non- or non-. According to the National Kidney Foundation, irrespective of diagnosis, the stage of the disease is based on the level of kidney function: Stage Description GFR(mL/min/1.73 m(2)) 1 Kidney damage with normal or decreased GFR 90 2 Kidney damage with mild decrease in GFR 60-89 3 Moderate decrease in GFR 30-59 4 Severe decrease in GFR 15-29 5 Kidney failure <15 (or dialysis) 2 >100 to <200 pg/mL: likely compensated congestive heart failure (CHF) 200 to 400 pg/mL: likely moderate CHF >400 pg/mL: likely moderate to severe CHF 3 MO Blast 4 Because ethnic data is not always readily available, this report includes an eGFR for both -Americans and non- Americans. The National Kidney Disease Education Program (NKDEP) does not endorse the use of the MDRD equation for patients that are not between the ages of 18 and 70, are , have extremes of body size, muscle mass, or nutritional status, or are non- or non-. According to the National Kidney Foundation, irrespective of diagnosis, the stage of the disease is based on the level of kidney function: Stage Description GFR(mL/min/1.73 m(2)) 1 Kidney damage with normal or decreased GFR 90 2 Kidney damage with mild decrease in GFR 60-89 3 Moderate decrease in GFR 30-59 4 Severe decrease in GFR 15-29 5 Kidney failure <15 (or dialysis) 5 Normocytic anemia. Reviewed by Starla López MD 6 Because ethnic data is not always readily available, this report includes an eGFR for both -Americans and non- Americans. The National Kidney Disease Education Program (NKDEP) does not endorse the use of the MDRD equation for patients that are not between the ages of 18 and 70, are , have extremes of body size, muscle mass, or nutritional status, or are non- or non-. According to the National Kidney Foundation, irrespective of diagnosis, the stage of the disease is based on the level of kidney function: Stage Description GFR(mL/min/1.73 m(2)) 1 Kidney damage with normal or decreased GFR 90 2 Kidney damage with mild decrease in GFR 60-89 3 Moderate decrease in GFR 30-59 4 Severe decrease in GFR 15-29 5 Kidney failure <15 (or dialysis) Procedures Date CPT Code Description Status 03/13/2018 67345 Holter Monitor Review (24 hr)dr deras & layne only Completed 03/12/2018 60238 ECG Monitor/Recording W/Visual Superimposition Scanning Completed 03/02/2018 54981 EKG Tracing & Interpretation Completed 12/01/2017 08297 ECHO Transthoracic, Real-Time 2D With Doppler And Color Completed Flow 12/01/2017 24159 ECHO Transthoracic, Real-Time 2D With Doppler And Color Completed Flow 12/01/2017 74203 Holter Monitor Review (24 hr)dr deras & layne only Completed 11/29/2017 58623 ECG Monitor/Recording W/Visual Superimposition Scanning Completed 11/24/2017 50581 EKG Tracing & Interpretation Completed 07/20/2017 16283 EKG Tracing & Interpretation Completed 07/20/2017 11890 EKG Tracing & Interpretation Completed 03/08/2017 92047 ECHO Transthoracic, Real-Time 2D With Doppler And Color Completed Flow 01/27/2017 22872 EKG Tracing & Interpretation Completed 01/27/2017 23262 EKG Tracing & Interpretation Completed 12/29/2016 37506 EKG Tracing & Interpretation Completed 12/06/2016 55472 Echocardiogram, Limited Study Completed 11/23/2016 07085 Holter Monitor Review (24 hr)dr review & interp only Completed 11/22/2016 67261 ECG Monitor/Recording W/Visual Superimposition Scanning Completed 11/17/2016 97157 EKG Tracing & Interpretation Completed 11/17/2016 75457 EKG Tracing & Interpretation Completed 11/03/2016 21966 EKG, Interpretation Only Completed 11/03/2016 78309 Cardioversion Completed 11/02/2016 68727 Cardioversion Completed 11/01/2016 66077 EKG Tracing & Interpretation Completed 10/18/2016 87052 EKG Tracing & Interpretation Completed 09/21/2016 81130 Cardioversion Completed 09/21/2016 84270 Echocardiography, Transesophageal, Real Time W/Image 2D Completed W/W/O M-M 09/21/2016 33123 Pulse Wave/Continuous-Interp.RPT Completed 09/21/2016 23955 Color Flow Doppler/Interp & Reprt Completed 08/12/2016 56808 EKG Tracing & Interpretation Completed 08/04/2016 30315 EKG Tracing & Interpretation Completed 08/03/2016 07134 ECHO Transthoracic, Real-Time 2D With Doppler And Color Completed Flow 08/03/2016 88093 ECHO Transthoracic, Real-Time 2D With Doppler And Color Completed Flow 08/03/2016 04504 ECHO Transthoracic, Real-Time 2D With Doppler And Color Completed Flow 10/16/2015 63662 Carotid Doppler,Bilateral Completed 10/06/2015 80989 EKG Tracing & Interpretation Completed Encounters Type Date Location Provider CPT E/M Dx Office Visit 03/16/2018 [facility] Kyler Ash, N.P. 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 I42.9 R53.1 E87.1 I48.0 R00.1 Office Visit 01/11/2018 3:20p [facility] Of Ariana Hamilton M.D. 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 I48.0 I25.810 R06.02 R60.0 I50.32 Office Visit 11/24/2017 9:20a [facility] Ariana Hamilton M.D. 91004 I48.0 Transmission System Operator [place] [facility] [place] I25.810 I42.9 R06.02 R60.0 Z91.81 I50.42 R53.1 Office Visit 09/07/2017 4:00p [facility] Of Shaniqua Ash, 26480FCC I48.0 Transmission System Operator N.P. I25.810 I10 E87.1 E78.5 Office Visit 08/14/2017 4:00p [facility] Ariana Hamilton M.D. 32273 I48.0 Transmission System Operator I25.810 R04.0 E87.1 I10 Office Visit 07/20/2017 8:15a [facility] KD Alford 39274 I48.0 I42.9 I10 R04.0 Office Visit 04/18/2017 3:30p [facility] Ariana Hamilton M.D. 32823 I42.9 [facility] I48.0 T17.308S I25.810 R05 Office Visit 01/27/2017 9:30a [facility] KD Alford 55792 I48.0 I42.9 R60.9 I10 Office Visit 12/29/2016 3:15p [facility] Ariana Hamilton M.D. 27059 I48.0 Transmission System Operator I42.9 E11.8 I25.810 Office Visit 11/17/2016 9:15a [facility] KD Alford 44939 I48.0 I42.9 E78.2 R06.02 Office Visit 11/01/2016 3:00p [facility] KD Alford 37522 I48.0 I42.9 E78.2 Office Visit 10/18/2016 3:30p [facility] Ariana Hamilton M.D. 67157 E78.2 [facility] I48.0 I35.0 I42.9 Office Visit 08/23/2016 3:30p [facility] [place]ford 77390 I48.91 I25.810 R60.9 Office Visit 08/12/2016 11:00a [facility] KD Alford 23672 I25.5 I25.810 R60.9 I48.91 Office Visit 08/04/2016 3:20p [facility] Ariana Hamilton M.D. 68920 I25.810 [facility] AT [facility] [place] I25.5 R60.0 E78.2 I10 I48.0 Office Visit 11/17/2015 2:45p [facility] Larisa Hamilton M.D. 40826 I25.810 [facility] E78.2 Office Visit 10/06/2015 2:00p [facility] Larisa Hamilton M.D. 52186 I25.10 [facility] E11.8 I10 E78.2 R09.89 R94.31 Plan of Care Future Appointment(s):05/14/2018 3:00 pm - Lelia Harris MD at [facility]03/16/2018 - Shaniqua Ash, N.P.R00.1 Bradycardia, unspecifiedComments:Holter monitor shows regular rhythm and not TOO slow.I50.32 Chronic diastolic (congestive) heart failureNew Labs:Basic Metabolic PanelFollow up:OV LS 06/2018 or sooner if any new symptoms.Recommendations: Continue diuretics furosemide 20mg alternating with 1/2 (25mg) tab of spironolactone Goal weight [id number]. If your weight goes higher than this then call for us to adjust diuretics.E87.1 Hypo-osmolality and jobosdcnmrtiO69.81 History of fallingNew Xrays:CT Brain WoRecommendations: Please use a walker or cane when walking outside. I would like to scan your brain to make sure you didn't have a bleed.I10 Essential (primary) hypertensionRecommendations:DECREASE Losartan to 50mg ONCE daily. Take BP 1-2x daily. Call with BPs in 2 weeks.
--- NOTE | 2018-04-10 16:02 | ED ---
Shortness of Breath - HPI Summary HPI Summary: Pt is a 77 y/o male who presents to the ED c/o SOB since this morning. He states he exercised a lot yesterday, and had no symptoms after exercising. Pt denies any CP or abdominal pain. He also c/o difficulty walking. notes some LE edema and states hes been retaining more fluid recently. Pt takes Lasix. Pt sleeps with one pillow at night. PMHx CABG, cardiac stents x7, Afib, CHF, CAD, GA, HLD, and HTN. - History of Current Complaint Chief Complaint: EDShortnessOfBreath Time Seen by Provider: 04/10/18 15:50 Hx Obtained From: Patient, Family/Accounting Bookkeeper - Onset/Duration: Sudden Onset, Lasting Hours - This morning, Still Present Timing: Constant Dyspnea At: Rest Alleviating Factors: Nothing Associated Signs & Symptoms: Edema - Allergy/Home Medications Allergies/Adverse Reactions: Allergies Allergy/AdvReac Type Severity Reaction Status Date / Time azithromycin Allergy Rash Verified 11/21/17 14:39 clopidogrel Allergy Unknown Verified 11/21/17 14:39 Reaction Details ezetimibe [From Zetia] Allergy Unknown Verified 11/21/17 14:39 Reaction Details Vdavdbe-Fei-Ctp Reductase Allergy Muscle Ache Verified 11/21/17 14:39 Inhibitor Home Medications: Home Medications Cardioxldl 2 cap PO DAILY 04/10/18 [History Confirmed 04/10/18] Cholecalciferol TAB* [Vitamin D TAB*] 200 unit PO DAILY 04/10/18 [History Confirmed 04/10/18] Food Enzymes 2 tab PO TID 04/10/18 [History Confirmed 04/10/18] Furosemide TAB* [Lasix TAB*] 20 mg PO EVERY OTHER DAY 04/10/18 [History Confirmed 04/10/18] Krill/Colt-3/Dha/Epa/Lipids [Krill Oil 300 mg Softgel] 1 cap PO DAILY 04/10/18 [History Confirmed 04/10/18] L.acidoph,Paracasei, B.lactis [Probiotic] 3 cap PO DAILY 04/10/18 [History Confirmed 04/10/18] Liquid Chlorophyll 1 liq PO DAILY 04/10/18 [History Confirmed 04/10/18] Losartan TAB* [Cozaar TAB*] 50 mg PO BID 04/10/18 [History Confirmed 04/10/18] Magnesium Oxide 250 mg PO BID 04/10/18 [History Confirmed 04/10/18] Mineral Chi Tonic 1 tbsp PO DAILY 04/10/18 [History Confirmed 04/10/18] Spironolactone TAB* [Aldactone TAB*] 12.5 mg PO EVERY OTHER DAY 04/10/18 [ History Confirmed 04/10/18] Vitamin E CAP* 400 unit PO DAILY 04/10/18 [History Confirmed 04/10/18] glipiZIDE [Glipizide ER] 5 mg PO DAILY 04/10/18 [History Confirmed 04/10/18] PMH/Surg Hx/FS Hx/Imm Hx Endocrine/Hematology History: Reports: Hx Diabetes Cardiovascular History: Reports: Hx Atrial Fibrillation, Hx Congestive Heart Failure, Hx Coronary Artery Disease, Hx Hypercholesterolemia, Hx Hypertension, Hx Myocardial Infarction - Surgical History Surgery Procedure, Year, and Place: stents, quadruple bypass Infectious Disease History: No Infectious Disease History: Denies: Traveled Outside the [place] in Last 30 Days - Family History Known Family History: Positive: Cardiac Disease - GA, Diabetes, Other - HLD, aneurysm - Social History Alcohol Use: None Hx Substance Use: No Substance Use Type: Reports: None Hx Tobacco Use: No Smoking Status (MU): Former Smoker Review of Systems Negative: Chest Pain Positive: Shortness Of Breath Negative: Abdominal Pain Positive: Edema All Other Systems Reviewed And Are Negative: Yes Physical Exam - Summary Physical Exam Summary: Appearance: Well appearing, no pain distress Skin: warm, dry, reflects adequate perfusion Head/face: normal Eyes: EOMI, STACY ENT: normal Neck: supple, non-tender Respiratory: CTA, breath sounds present Cardiovascular: RRR, pulses symmetrical, bilateral pedal edema Abdomen: non-tender, soft Bowel: present Musculoskeletal: normal, strength/ROM intact Neuro: normal, sensory motor intact, A&Ox3 Triage Information Reviewed: Yes Vital Signs On Initial Exam: Initial Vitals Temp Pulse Resp BP Pulse Ox 96.3 F 61 16 164/69 100 04/10/18 15:33 04/10/18 15:33 04/10/18 15:33 04/10/18 15:33 04/10/18 15:33 Vital Signs Reviewed: Yes Diagnostics - Vital Signs Vital Signs Temp Pulse Resp BP Pulse Ox 04/10/18 15:33 96.3 F 61 16 164/69 100 - Laboratory Result Diagrams: 04/10/18 16:12 04/10/18 16:12 Lab Statement: Any lab studies that have been ordered have been reviewed, and results considered in the medical decision making process. - Radiology CXR Xray Interpretation: Positive (See Comments) - Pulmonary vascular congestion and interstitial edema with associated small to moderate subpulmonic RIGHT pleural effusion. Probable worsening of cardiomegaly compared with the prior exam. ED physician reviewed radiology report. Radiology Interpretation Completed By: Radiologist - EKG 15:50 Cardiac Rate: NL - 64 bpm EKG Rhythm: Sinus Rhythm Course/Dx - Course Course Of Treatment: Pt is a 77 y/o male who presents to the ED c/o SOB since this morning. He states he exercised a lot yesterday, and had no symptoms after exercising. Pt denies any CP or abdominal pain. He also c/o difficulty walking. notes some LE edema and states hes been retaining more fluid recently. Pt takes Lasix. PMHx CABG, cardiac stents x7, Afib, CHF, CAD, GA, HLD, and HTN. A physical exam revealed bilateral pedal edema. A CXR revealed Pulmonary vascular congestion and interstitial edema with associated small to moderate subpulmonic RIGHT pleural effusion. Probable worsening of cardiomegaly compared with the prior exam. An EKG revealed a normal rate of 64 bpm. Final dx are decompensating CHF, dyspnea, and CAD. Dr. Young accepts pt for admission. Pt is agreeable with this plan. - Diagnoses Differential Diagnosis/HQI/PQRI: Positive: CHF, Pneumonia, Pulmonary Edema, Unstable Angina Provider Diagnoses: Heart failure, chronic, with acute decompensation, Dyspnea, CAD (coronary artery disease) - Physician Notifications Discussed Care of Patient With: Johnson Young Time Discussed With Above Provider: 17:15 Instructed by Provider To: Admit As Inpatient - Dr. Young accepts pt for admission. Discharge - Sign-Out/Discharge Documenting (check all that apply): Patient Departure - Admit - Discharge Plan Condition: Stable Disposition: ADMITTED TO [facility] Referrals: Pita Morales MD [Primary Care Provider] - - Billing Disposition and Condition Condition: STABLE Disposition: Admitted to [facility] - Attestation Statements Document Initiated by Scribe: Yes Documenting Scribe: Heydi Laughlin Provider For Whom Scribe is Documenting (Include Credential): Gage Magaña MD Scribe Attestation: IHeydi, scribed for Gage Magaña MD on 04/10/18 at 1724. Scribe Documentation Reviewed: Yes Provider Attestation: The documentation as recorded by the [email or web address] accurately reflects the service I personally performed and the decisions made by me, Gage Magaña MD
--- NOTE | 2018-04-10 16:28 | RAD ---
Indication: Shortness of breath. Congestive heart failure. Hypertension. Comparison: November 21, 2017 Technique: Upright AP 1613 hours Report: Median sternotomy wires. Cardiomegaly with suggestion of interval increase. Prominent ill-defined central pulmonary vasculature and perihilar mild alveolar opacities. Diffuse prominence of the interstitial markings with subtle peripheral thickened interlobular septa. Small to moderate subpulmonic RIGHT pleural effusion with proportional basilar atelectasis. Negative for pneumothorax. IMPRESSION: #. Pulmonary vascular congestion and interstitial edema with associated small to moderate subpulmonic RIGHT pleural effusion. Probable worsening of cardiomegaly compared with the prior exam.
[2018-04-10 16:29] LABS: ABS Basophils 0.1 10^3/ul (0-0.2); ABS Eosinophils 0.2 10^3/ul (0-0.6); ABS Lymphocytes 0.6 10^3/ul (1.0-4.8); ABS Monocytes 0.8 10^3/ul (0-0.8); ABS Neutrophils 3.7 10^3/ul (1.5-7.7); ABS Nucleated RBC 0 10^3/ul; Eosinophil % 3.6 % (0-6); Hematocrit 34 % (42-52); Hemoglobin 11.8 g/dl (14.0-18.0); Lymphocyte % 10.3 % (25-47); Mean Corpuscular HGB Conc 35 g/dl (31-36); Mean Corpuscular Hemoglobin 31 pg (27-31); Mean Corpuscular Volume 88 fL (80-94); Mean Platelet Volume 7.3 um3 (7.4-10.4); Nucleated Red Blood Cells % 0.1; Platelet Count 144 10^3/ul (150-450); Red Blood Count 3.88 10^6/ul (4.00-5.40); Red Cell Distribution Width 15 % (10.5-15); White Blood Count 5.3 10^3/ul (3.5-10.8)
[2018-04-10 16:37] LABS: INR 1.52 (0.77-1.02)
[2018-04-10 16:42] LABS: EGFR Non-African American 82.9 (>60)
[2018-04-10] MEDS ORDERED: Furosemide IV* 10 MG/ML 10 ML VIAL (100 MG) IV ONE (16:53)
[2018-04-10] MEDS: Apixaban* 5 MG TAB PO SCH (22:45)
[2018-04-10] MEDS: Carvedilol TAB* 6.25 MG PO SCH (22:45)
[2018-04-10] MEDS: CMCS Ranolazine (NF) 500 MG TAB PO SCH (22:45)
[2018-04-10] MEDS: Losartan TAB* 25 MG PO SCH (22:46)
--- NOTE | 2018-04-11 01:11 | HP ---
CC: Dr. Morales; Dr. Hamilton * HISTORY AND PHYSICAL: DATE OF ADMISSION: 04/10/18 PRIMARY CARE PROVIDER: Dr. Morales. ATTENDING PHYSICIAN: Dr. Gibbons.* (DICTATED BY MCKAYLA BENNETT NP) CHIEF COMPLAINT: Shortness of breath and lower extremity edema. HISTORY OF PRESENT ILLNESS: She is a 77-year-old male with past medical history significant for coronary artery disease, CHF with an EF of 45% to 50% as of November 2017, ID, AFib status post cardioversion, hyperlipidemia, hypertension , and diabetes who presented to the ED with shortness of breath that began this morning and is worse with an exertion and better with rest. Also, of note, he reported increased bilateral legs swelling that gradually got worse over the past few days. His weight is up about 3 pounds over the past few days. He has been in communication with his electrician shop, Dr. Hamilton, who has been making adjustments to his diuretic therapy to manage the accumulating fluid, but he did not take any Lasix this morning. He denied chest pain, palpitations, cough , or any other associated symptoms. Workup in the ED included an EKG that displayed normal sinus rhythm with a rate of 64, troponins were negative x2. He had a chest x-ray that showed pulmonary vascular congestion and interstitial edema with small to moderate subpulmonic right pleural effusion. On exam, he was found to have bibasilar rales and +1 pitting edema to the bilateral lower extremities. He had no JVD or accessary muscle use and normal work of breathing. He was given 60 mg of IV Lasix in the ED and produced 800 mL of urine. He was admitted for medical management of acute on chronic diastolic CHF exacerbation. PAST MEDICAL HISTORY: 1. Coronary artery disease. 2. CHF. 3. ID. 4. AFib. 5. Hyperlipidemia. 6. Hypertension. 7. Diabetes type 2. PAST SURGICAL HISTORY: Includes CABG x2 and PCI with multiple stents. MEDICATIONS: Home medication includes: 1. Carvedilol 6.2 mg p.o. b.i.d. 2. Vitamin E capsule 400 units p.o. daily. 3. Mineral-Chi Tonic 1 table spoon p.o. daily. 4. Food enzymes 2 tablets p.o. daily. 5. Liquid Chlorophyll 1 liquid unit p.o. daily. 6. Krill omega-3 oil 1 capsule p.o. daily. 7. Probiotics 3 capsules p.o. daily. 8. CardioxLDL 2 capsules p.o. daily. 9. Vitamin D tab 200 units p.o. daily. 10. Ranexa 1000 mg p.o. b.i.d. 11. Magnesium oxide 250 mg p.o. b.i.d. 12. Vitamin C tablet 1000 mg p.o. daily. 13. Glipizide ER 5 mg p.o. daily. 14. Losartan 50 mg p.o. once at night. 15. Aspirin 80 mg p.o. daily. 16. Furosemide 20 mg 5 days a week, not Monday or Monday. 17. Amiodarone 200 mg p.o. daily. 18. Eliquis 5 mg p.o. daily. ALLERGIES: Include AZITHROMYCIN, CLOPIDOGREL, EZETIMIBE, and STATINS. FAMILY HISTORY: He has a family history of coronary artery disease; his father , brother and uncles all have coronary artery disease. His grandmother had diabetes and he has no history of cancer in his family. SOCIAL HISTORY: The patient denies tobacco use, alcohol use, or illicit drug use. His , Nakia, will be his surrogate decision maker in the event that he cannot make any decisions for himself. REVIEW OF SYSTEMS: I performed a 14-point review of systems. All the pertinent positives and negatives are mentioned in the history of present illness. The remaining review of systems are negative. PHYSICAL EXAMINATION GENERAL: The patient is alert, pleasant, appears to be in no acute distress. VITAL SIGNS: Temperature 96.3, heart rate 60, respiratory rate 22, oxygen saturation 95% on room air, blood pressure 165/75. HEENT: Normocephalic, atraumatic. Pupils are equal, round, and reactive to light. Extraocular movements were intact. NECK: Supple. No JVD appreciated. No lymphadenopathy noted. RESPIRATORY: There was no accessory muscle use. His lungs did have bibasilar crackles. CARDIAC: Regular rate and rhythm, S1, S2 present. He has a systolic murmur that is best heard at the right sternal border. ABDOMEN: Soft, nontender, and nondistended. There were bowel sounds x4. EXTREMITIES: He has bilateral +1 pitting edema to the bilateral lower extremities up until the knee. The left is worse than the right. DP and PT pulses were 2+ and symmetric. MUSCULOSKELETAL: There is no clubbing or cyanosis noted. The patient exhibited good strength in all 4 extremities. NEUROLOGIC: The patient is alert and oriented x3. Cranial nerves II through XII are intact. PSYCH: The patient is calm and cooperative. SKIN: There are no rashes or abnormalities seen. DIAGNOSTIC STUDIES/LAB DATA: Sodium 125, potassium 4.4, chloride 92, CO2 of 25 , BUN 15, creatinine 0.89, glucose 93, calcium 9.5. White blood cell count 5.3 , hemoglobin 11.8, hematocrit 34, and platelet count 144. INR was 1.52. PTT is 38.8. His BNP was 724. He had an EKG that displayed normal sinus rhythm without sign of ischemia. He also had a chest x-ray that showed pulmonary vasculature congestion, interstitial edema with small to moderate subpulmonic right pleural effusions. IMPRESSION: This is a 77-year-old male with a significant cardiac medical history including coronary artery disease, congestive heart failure, myocardial infarction, and atrial fibrillation who presented with shortness of breath and bilateral lower extremity swelling and will be admitted for acute on chronic congestive heart failure exacerbation. PLAN: 1. For acute on chronic diastolic heart failure, he received 60 mg of IV Lasix in the ED with a good response. He put out 800 mL of urine. Tomorrow, he will receive 40 mg of IV Lasix at 8 a.m. and noon and we will observe his response. We are going to continue his losartan and carvedilol, his home medications, strict Is and Os and daily weights, the goal weight per his outpatient electrician shop is 181 to 183 pounds. 2. For coronary artery disease, we are going to continue his home aspirin. The patient does have an allergy to STATIN, so he is not on a STATIN. He did have troponins x2, which were negative. 3. For his hypertension, we are going to continue this home regimen of losartan and carvedilol. He is getting IV Lasix as mentioned above and we will consider restarting his p.o. Lasix depending on his response. 4. For AFib, the EKG in the ED showed normal sinus rhythm. He is on carvedilol for rate control, which we are continuing. He is anticoagulated with Eliquis, which we are continuing and he is on amiodarone for rhythm control , which we are continuing. 5. For diabetes, we are continuing his home glipizide and he will have b.i.d. fingersticks. 6. Hyponatremia: He had a sodium of 125, likely just due to volume overload, but we will continue to monitor with BMP tomorrow. 7. Fluids, electrolytes, and nutrition: He is on a heart-healthy diet. 8. Code status: He would like to be a DNR, we completed the MOLST form and that is in his chart. 9. For DVT prophylaxis, he is on Eliquis. DISPOSITION: He is going to be inpatient and anticipated discharge to home when clinically stable. TIME SPENT: Time for this admission was 60 minutes and 35 minutes were spent with the patient discussing medication, past medical history, and events leading up to the arrival today and performing physical examination. The case has been reviewed with the attending, Dr. Gibbons, who agrees with the plan of care. MCKAYLA BENNETT, MIRIAN [id number]/CPS #: [id number] FRANK
[2018-04-11 07:45] LABS: EGFR Non-African American 96.5 (>60)
[2018-04-11] MEDS ORDERED: Furosemide IV* 10 MG/ML 2 ML VIAL (20 MG) IV ONE ×2 (08:00→09:00)
[2018-04-11] MEDS: Losartan TAB* 25 MG PO SCH (08:13)
[2018-04-11] MEDS: Carvedilol TAB* 6.25 MG PO SCH ×2 (08:13→20:29)
[2018-04-11] MEDS: Ascorbic Acid TAB* 500 MG PO SCH (08:14)
[2018-04-11] MEDS: Apixaban* 5 MG TAB PO SCH ×2 (08:14→20:29)
[2018-04-11] MEDS: Aspirin EC TAB* 81 MG TAB.EC PO SCH (08:14)
[2018-04-11] MEDS: glipiZIDE TAB.XL* 5 MG PO SCH (08:14)
[2018-04-11] MEDS: Amiodarone TAB* 200 MG PO SCH (08:14)
[2018-04-11] MEDS: Cholecalciferol TAB* 400 UNIT PO SCH (08:14)
[2018-04-11] MEDS ORDERED: Furosemide IV* 10 MG/ML 2 ML VIAL (20 MG) ONE (08:19)
[2018-04-11] MEDS: CMCS Ranolazine (NF) 500 MG TAB PO SCH ×2 (08:20→20:29)
[2018-04-11] MEDS ORDERED: Furosemide IV* 10 MG/ML VIAL (40 MG) IV ONE (12:00)
--- NOTE | 2018-04-11 18:30 | PN ---
Subjective Date of Service: 04/11/18 Interval History: Breathing is better but SOB when getting up to bathroom. No cough. Energy OK Objective Active Medications: Amiodarone HCl (Cordarone Tab*) 200 mg PO DAILY [facility] Last Admin: 04/11/18 08:14 Dose: 200 mg Apixaban (Eliquis*) 5 mg PO BID [facility] Last Admin: 04/11/18 08:14 Dose: 5 mg Ascorbic Acid (Vitamin C Tab*) 1,000 mg PO DAILY [facility] Last Admin: 04/11/18 08:14 Dose: 1,000 mg Aspirin (Aspirin Ec Tab*) 81 mg PO DAILY [facility] Last Admin: 04/11/18 08:14 Dose: 81 mg Carvedilol (Coreg Tab*) 6.25 mg PO BID [facility] Last Admin: 04/11/18 08:13 Dose: 6.25 mg Cholecalciferol (Vitamin D Tab*) 200 unit PO DAILY [facility] Last Admin: 04/11/18 08:14 Dose: 200 unit Glipizide (Glucotrol Xl*) 5 mg PO DAILY [facility] Last Admin: 04/11/18 08:14 Dose: 5 mg Losartan Potassium (Cozaar Tab*) 50 mg PO DAILY [facility] Last Admin: 04/11/18 08:13 Dose: 50 mg Ranolazine (Ranexa (Nf)) 1,000 mg PO BID [facility]; Protocol Last Admin: 04/11/18 08:20 Dose: 1,000 mg Spironolactone (Aldactone Tab*) 12.5 mg PO EVERY OTHER DAY [facility] Vitamin E (Vitamin E Cap*) 400 unit PO DAILY [facility] Vital Signs - 8 hr 04/11/18 04/11/18 11:05 15:12 Temperature 98.3 F 98.4 F Pulse Rate 57 65 Respiratory 16 18 Rate Blood Pressure 135/57 160/80 (mmHg) O2 Sat by Pulse 96 98 Oximetry Oxygen Devices in Use Now: None Appearance: sitting in chair, NAD Eyes: No Scleral Icterus, PERRLA Ears/Nose/Mouth/Throat: NL Teeth, Lips, Gums, Clear Oropharnyx Neck: NL Appearance and Movements; NL JVP Respiratory: Symmetrical Chest Expansion and Respiratory Effort, - - decreased BS in right base Cardiovascular: RRR, - - 3/6 RUBY Abdominal: NL Sounds; No Tenderness; No Distention, No Hepatosplenomegaly Lymphatic: No Cervical Adenopathy Neurological: Alert and Oriented x 3 Result Diagrams: 04/10/18 16:12 04/11/18 06:16 Assess/Plan/Problems-Billing Assessment: 77 yo M h/o afib, ICM (EF 45-50%, inc LVEDP, , PA pr 38 mmhg on 11/2017) p/w weight gain and sob - Patient Problems (1) Heart failure, systolic, with acute decompensation Comment: lasix 40 IV in AM check BMPs remove dubon strict I/Os (2) Afib Comment: judd coreg (3) Diabetes Comment: hba1c 5.9% glipizide no FSG (4) DVT prophylaxis Comment: judd
[2018-04-12] MEDS ORDERED: hydrALAZINE IV* 20 MG/ML VIAL IV PRN (00:22)
[2018-04-12] MEDS ORDERED: Furosemide IV* 10 MG/ML VIAL (40 MG) IV SLOW PU SCH (09:00)
[2018-04-12] MEDS ORDERED: Vitamin E CAP* 400 UNIT PO SCH (09:00)
[2018-04-12] MEDS: Losartan TAB* 25 MG PO SCH (09:18)
[2018-04-12] MEDS: Apixaban* 5 MG TAB PO SCH (09:18)
[2018-04-12] MEDS: Aspirin EC TAB* 81 MG TAB.EC PO SCH (09:19)
[2018-04-12] MEDS: glipiZIDE TAB.XL* 5 MG PO SCH (09:19)
[2018-04-12] MEDS: Carvedilol TAB* 6.25 MG PO SCH (09:19)
[2018-04-12] MEDS: Amiodarone TAB* 200 MG PO SCH (09:19)
[2018-04-12] MEDS: CMCS Ranolazine (NF) 500 MG TAB PO SCH (09:19)
[2018-04-12] MEDS: Ascorbic Acid TAB* 500 MG PO SCH (09:20)
[2018-04-12] MEDS: Cholecalciferol TAB* 400 UNIT PO SCH (09:20)
[2018-04-12 15:54] VITALS: BP 138/64
[2018-04-12] MEDS ORDERED: Ondansetron INJ* 2 MG/ML VIAL IV ONE (16:25)
[2018-04-12] MEDS ORDERED: Ondansetron ODT TAB* 4 MG SL ONE (16:26)
[2018-04-12] MEDS ORDERED: Ondansetron ODT TAB* 4 MG ONE (16:28)
--- NOTE | 2018-04-13 07:44 | DS ---
CC: Dr. Morales * DISCHARGE SUMMARY: DATE OF ADMISSION: 04/10/18 DATE OF DISCHARGE: 04/12/18 PRIMARY CARE PROVIDER: Dr. Morales. PRIMARY DIAGNOSIS: Acute decompensated systolic heart failure exacerbation. SECONDARY DIAGNOSES: Include: 1. Coronary artery disease. 2. Atrial fibrillation. 3. Hyperlipidemia. 4. Hypertension. 5. Type 2 diabetes. 6. Hyponatremia MEDICATIONS ON DISCHARGE: 1. Carvedilol 6.25 mg twice daily. 2. Vitamin E 400 mg daily. 3. Mineral-Chi Tonic. 4. Food enzymes. 5. Liquid Chlorophyll. 6. Krill oil. 7. Probiotic. 8. CardioxLDL. 9. Vitamin D 200 mg daily. 10. Ranexa 1000 mg twice daily. 11. Magnesium oxide 250 mg twice daily. 12. Ascorbic acid 1000 mg daily. 13. Glipizide 5 mg daily. 14. Losartan 50 mg twice daily. 15. Aspirin 81 mg daily. 16. Spironolactone 12.5 mg every other day. 17. Amiodarone 200 mg daily. 18. Eliquis 5 mg twice daily. 19. Lasix 20 mg daily. Please note the increase of his Lasix dose from every other day to daily. PERTINENT LABORATORY DATA: Sodium on the day of discharge 124. Hemoglobin A1c is 5.9. Troponin I 0.01 on 2 consecutive checks. Weight on the day of discharge 84.1 kg, dropped from 85.2. HISTORY OF PRESENT ILLNESS AND HOSPITAL COURSE: This is a 77-year-old man, past medical history as outlined in history of present illness on the day of admission including CAD and CHF, last known EF 45%; atrial fibrillation; diabetes, presented to the hospital with increased shortness of breath, associated weight gain over the several days prior to presentation. The patient did note some dietary indiscretion with eating chipotle several days prior to presentation, which is around that same time his weight had been increased. He received IV Lasix for several days with vigorous fluid output, negative 1700 mL, 1300 mL and 100 mL on consecutive days since admission respectively. His breathing improved. He was able to ambulate around the entire unit without the use of oxygen, felt ready for discharge. He was counseled on dietary intake of salt, although his did indicate that it was a mistake recognized in retrospect. He was counseled to follow up with his primary care provider shortly after discharge. There are no complications during his hospital stay. At followup, please: 1. Evaluate volume status on Lasix 20 mg daily. 2. Consider repeat BNP to evaluate for kidney function on increased dose of Lasix. Creatinine on day of discharge 0.77. 3. There are no other specific labs or vitals that need followup. Reasons to return to the hospital include, but not limited to, recurrent or worsening symptoms including chest pain, shortness of breath, nausea, vomiting, lightheadedness, loss of consciousness or near loss of consciousness, inability to obtain or tolerate medications were discussed with the patient, and he acknowledged understanding. TIME SPENT: Greater than 60 minutes was spent on the discharge of the patient, greater than half was spent [id number] with the patient. [id number]/[facility] #: [id number] MTDD
[2018-04-13] MEDS ORDERED: Spironolactone TAB* 25 MG PO SCH (09:00)
== END 2018-04-12 16:38 | disposition home or self-care (01) | DRG 292 ==
LOC: ED 15:01 → MEDTELE 19:47
PROVIDERS: ADMIT Hospitalist; ATTEND Internal Medicine
DX: I11.0 Hypertensive heart disease with heart failure (principal); E87.1 Hypo-osmolality and hyponatremia; I48.91 Unspecified atrial fibrillation; E11.9 Type 2 diabetes mellitus without complications; I25.10 Atherosclerotic heart disease of native coronary artery without angina pectoris; I50.43 Acute on chronic combined systolic (congestive) and diastolic (congestive) heart failure; E78.5 Hyperlipidemia, unspecified; Z66 Do not resuscitate; I25.5 Ischemic cardiomyopathy; Z88.8 Allergy status to other drugs, medicaments and biological substances; Z95.1 Presence of aortocoronary bypass graft; Z88.1 Allergy status to other antibiotic agents; Z95.5 Presence of coronary angioplasty implant and graft; I25.2 Old myocardial infarction; Z82.49 Family history of ischemic heart disease and other diseases of the circulatory system; Z83.3 Family history of diabetes mellitus; Z87.891 Personal history of nicotine dependence; Z79.82 Long term (current) use of aspirin; Z79.01 Long term (current) use of anticoagulants; Z79.84 Long term (current) use of oral hypoglycemic drugs; Z91.11 Patient's noncompliance with dietary regimen
CPT/HCPCS: 36415; 71045; 80048; 80053; 83036; 83605; 83880; 84484; 85025; 85610; 85730; 93005; 99284; A9270-GY; J0360; J1940

== ENCOUNTER 2018-07-20 17:35 | Emergency (ER) | payer MEDICARE ==
[2018-07-20] MEDS ORDERED: Ondansetron INJ* 2 MG/ML VIAL IV ONE (21:08)
[2018-07-20] MEDS: NS 0.9% 1000 ML* 2,000 ML IV ONE (21:27)
[2018-07-20 21:39] LABS: ABS Basophils 0 10^3/ul (0-0.2); ABS Eosinophils 0 10^3/ul (0-0.6); ABS Lymphocytes 0.8 10^3/ul (1.0-4.8); ABS Monocytes 0.5 10^3/ul (0-0.8); ABS Neutrophils 4.4 10^3/ul (1.5-7.7); ABS Nucleated RBC 0 10^3/ul; Eosinophil % 0.5 %; Hematocrit 38 % (42-52); Hemoglobin 13.3 g/dl (14.0-18.0); Lymphocyte % 13.5 %; Mean Corpuscular HGB Conc 35 g/dl (31-36); Mean Corpuscular Hemoglobin 32 pg (27-31); Mean Corpuscular Volume 91 fL (80-94); Mean Platelet Volume 6.8 fL (7.4-10.4); Nucleated Red Blood Cells % 0.1; Platelet Count 184 10^3/ul (150-450); Red Cell Distribution Width 14 % (10.5-15); White Blood Count 5.7 10^3/ul (3.5-10.8)
[2018-07-20 21:57] LABS: Albumin 4.2 g/dL (3.2-5.2); Albumin/Globulin Ratio 1.1 (1-3); BUN/Creatinine Ratio 25.3 (8-20); Calcium 9.4 mg/dL (8.6-10.3); EGFR Non-African American 85.1 (>60); Potassium 4.2 mmol/L (3.5-5.0); Total Bilirubin 0.9 mg/dL (0.2-1.0); Total Protein 8.2 g/dL (6.4-8.9)
--- NOTE | 2018-07-20 22:29 | ED ---
Complex/Multi-Sys Presentation - HPI Summary HPI Summary: This patient is a 77 year old M presenting to [facility] with a chief complaint of consistent vomiting throughout the day with lightheadedness. He states he is unable to keep down food or liquids. Denies abdominal pain, diarrhea, or BM today. There has been no fever. No else is ill at home. There is no suspected exposure to tainted food. - History Of Current Complaint Chief Complaint: EDGeneral Time Seen by Provider: 07/20/18 21:04 Hx Obtained From: Patient Onset/Duration: Lasting Hours Timing: Constant Severity Currently: None Location: Negative Aggravating Factor(s): eating/drinking Associated Signs And Symptoms: Positive: Nausea, Vomiting. Negative: Diarrhea - Allergies/Home Medications Allergies/Adverse Reactions: Allergies Allergy/AdvReac Type Severity Reaction Status Date / Time azithromycin Allergy Rash Verified 07/20/18 17:49 clopidogrel Allergy Unknown Verified 07/20/18 17:49 Reaction Details ezetimibe [From Zetia] Allergy Unknown Verified 07/20/18 17:49 Reaction Details Ufvqwfs-Vuk-Odo Reductase Allergy Muscle Ache Verified 07/20/18 17:49 Inhibitor Home Medications: Home Medications Warfarin TAB(*) 1 tab PO SEE INSTRUCTIONS 07/20/18 [History Confirmed 07/20/18] PMH/Surg Hx/FS Hx/Imm Hx Endocrine/Hematology History: Reports: Hx Diabetes Cardiovascular History: Reports: Hx Atrial Fibrillation, Hx Congestive Heart Failure, Hx Coronary Artery Disease, Hx Hypercholesterolemia, Hx Hypertension, Hx Myocardial Infarction Sensory History: Reports: Hx Contacts or Glasses Denies: Hx Hearing Aid Opthamlomology History: Reports: Hx Contacts or Glasses - Surgical History Surgery Procedure, Year, and Place: stents, quadruple bypass Infectious Disease History: No Infectious Disease History: Denies: Hx Clostridium Difficile, Hx Hepatitis, Hx Human Immunodeficiency Virus (HIV), Hx of Known/Suspected MRSA, Hx Shingles, Hx Tuberculosis, History Other Infectious Disease, Traveled Outside the [place] in Last 30 Days - Family History Known Family History: Positive: Cardiac Disease - [place], Diabetes, Other - HLD, aneurysm - Social History Alcohol Use: None Hx Substance Use: No Substance Use Type: Reports: None Hx Tobacco Use: No Smoking Status (MU): Former Smoker Review of Systems Positive: Other - lightheaded Positive: Vomiting, Nausea. Negative: Abdominal Pain, Diarrhea All Other Systems Reviewed And Are Negative: Yes Physical Exam - Summary Physical Exam Summary: Appearance: Well-appearing, Well-nourished, lying in bed comfortably Skin: Warm, dry, no obvious rash Eyes: sclera anicteric, no conjunctival pallor ENT: mucous membranes moist, pharynx appears normal Neck: Supple, nontender Respiratory: Clear to auscultation, no signs of respiratory distress Cardiovascular: Normal S1, S2. No murmurs. Normal distal pulses in tibial and radial bilaterally. Abdomen: Soft, nontender, normal active bowel sounds present Musculoskeletal: Normal, Strength/ROM Intact Neurological: A&Ox3, awake and alert, mentation is normal, speech is fluent and appropriate Psychiatric: affect is normal, does not appear anxious or depressed Triage Information Reviewed: Yes Vital Signs On Initial Exam: Initial Vitals Temp Pulse Resp BP Pulse Ox 96.3 F 65 19 178/75 100 07/20/18 17:46 07/20/18 17:46 07/20/18 17:46 07/20/18 17:46 07/20/18 17:46 Vital Signs Reviewed: Yes Diagnostics - Vital Signs Vital Signs Temp Pulse Resp BP Pulse Ox 07/20/18 21:41 60 16 178/84 94 07/20/18 21:35 60 22 175/86 96 07/20/18 21:12 60 16 190/79 96 07/20/18 21:11 17 07/20/18 19:26 96.1 F 61 20 174/76 99 07/20/18 17:46 96.3 F 65 19 178/75 100 - Laboratory Lab Results: Lab Results 07/20/18 07/20/18 07/20/18 Range/Units 21:32 21:32 21:32 WBC 5.7 (3.5-10.8) 10^3/ul RBC 4.20 (4.00-5.40) 10^6/ul Hgb 13.3 L (14.0-18.0) g/dl Hct 38 L (42-52) % MCV 91 (80-94) fL MCH 32 H (27-31) pg MCHC 35 (31-36) g/dl RDW 14 (10.5-15) % Plt Count 184 (150-450) 10^3/ul MPV 6.8 L (7.4-10.4) fL Neut % (Auto) 76.7 % Lymph % (Auto) 13.5 % [place] % (Auto) 8.6 % Eos % (Auto) 0.5 % Baso % (Auto) 0.7 % Absolute Neuts (auto) 4.4 (1.5-7.7) 10^3/ul Absolute Lymphs (auto) 0.8 L (1.0-4.8) 10^3/ul Absolute Monos (auto) 0.5 (0-0.8) 10^3/ul Absolute Eos (auto) 0 (0-0.6) 10^3/ul Absolute Basos (auto) 0 (0-0.2) 10^3/ul Absolute Nucleated RBC 0 10^3/ul Nucleated RBC % 0.1 Sodium 134 L (135-145) mmol/L Potassium 4.2 (3.5-5.0) mmol/L Chloride 97 L (101-111) mmol/L Carbon Dioxide 28 (22-32) mmol/L Anion Gap 9 (2-11) mmol/L BUN 22 (6-24) mg/dL Creatinine 0.87 (0.67-1.17) mg/dL Est GFR ( Amer) 103.0 (>60) Est GFR (Non-Af Amer) 85.1 (>60) BUN/Creatinine Ratio 25.3 H (8-20) Glucose 251 H (70-100) mg/dL Lactic Acid 2.0 (0.5-2.0) mmol/L Calcium 9.4 (8.6-10.3) mg/dL Total Bilirubin 0.90 (0.2-1.0) mg/dL AST 37 (13-39) U/L ALT 46 (7-52) U/L Alkaline Phosphatase 50 (34-104) U/L Troponin I 0.01 (<0.04) ng/mL Total Protein 8.2 (6.4-8.9) g/dL Albumin 4.2 (3.2-5.2) g/dL Globulin 4.0 (2-4) g/dL Albumin/Globulin Ratio 1.1 (1-3) Result Diagrams: 07/20/18 21:32 07/20/18 21:32 Lab Statement: Any lab studies that have been ordered have been reviewed, and results considered in the medical decision making process. - EKG 2128 Cardiac Rate: Bradycardia - 59 BPM EKG Rhythm: Sinus Rhythm Summary of EKG Findings: Normal EKG Re-Evaluation - Re-Evaluation 1 Re-Evaluation Time: 22:36 Change: Improved - Patients symptoms are improved. He agrees to attempt to drink water. If he does not vomit he will be able to go home. Patient is agreeable to this plan. Complex Multi-Symp Course/Dx Course Of Treatment: 77 year old M presenting to [facility] with a chief complaint of consistent vomiting throughout the day with lightheadedness. He states he is unable to keep down food or liquids. Denies abdominal pain, diarrhea, or BM today. Bloodowork is WNL. EKG is normal. Patient is given IV fluids and 4mg zofran. Patient states symptoms have improved and agrees to try to drink water. Nausea returned and was given 8mg of Zofran. Patient eventually was able to drink water without vomiting and was discharged. - Diagnoses Provider Diagnoses: Nausea and vomiting Discharge - Sign-Out/Discharge Documenting (check all that apply): Patient Departure - discharge - Discharge Plan Condition: Improved Disposition: HOME Prescriptions: Ondansetron ODT TAB* [Zofran 4 MG Odt TAB*] 8 mg PO Q6H PRN #10 tab.odt PRN Reason: Nausea Patient Education Materials: Gastroenteritis (ED), Acute Nausea and Vomiting ( ED) Referrals: Pita Morales MD [Primary Care Provider] - - Billing Disposition and Condition Condition: IMPROVED Disposition: Home - Attestation Statements Document Initiated by El: Yes Documenting Scribe: Obdulia Sellers Provider For Whom El is Documenting (Include Credential): Todd Liu MD Scrib[employer]ina Attestation: Obdulia Cohen, lisaed for Todd Liu MD on 07/21/18 at 0342. Scribe Documentation Reviewed: Yes Provider Attestation: The documentation as recorded by the Obdulia kruse accurately reflects the service I personally performed and the decisions made by Todd gomez MD Status of Scribe Document: Viewed
[2018-07-20] MEDS ORDERED: Ondansetron ODT TAB* 4 MG SL ONE (22:52)
[2018-07-21] MEDS ORDERED: Ondansetron ODT TAB* 4 MG PO ONE (00:24)
[2018-07-21] MEDS ORDERED: Ondansetron TAB* 4 MG ONE (00:25)
[2018-07-21] MEDS ORDERED: Ondansetron TAB* 4 MG PO ONE (00:28)
[2018-07-21 00:30] VITALS: BP 153/76
== END 2018-07-21 00:30 | disposition home or self-care (01) ==
LOC: ED 17:35
DX: R11.2 Nausea with vomiting, unspecified (principal); Z87.891 Personal history of nicotine dependence; R42 Dizziness and giddiness; I25.10 Atherosclerotic heart disease of native coronary artery without angina pectoris; I48.91 Unspecified atrial fibrillation
CPT/HCPCS: 36415; 80053; 83605; 84484; 85025; 93005; 96374; 99283; A9270-GY; J2405

== ENCOUNTER 2020-06-09 07:24 | Observation (INO) ==
[2020-06-09 08:18] LABS: ABS Basophils 0.1 10^3/ul (0-0.2); ABS Eosinophils 0.1 10^3/ul (0-0.6); ABS Lymphocytes 0.8 10^3/ul (1.0-4.8); ABS Monocytes 0.9 10^3/ul (0-0.8); ABS Neutrophils 4.1 10^3/ul (1.5-7.7); Eosinophil % 2.4 %; Hematocrit 32 % (42-52); Hemoglobin 11.5 g/dL (14.0-18.0); Lymphocyte % 13.3 %; Mean Corpuscular HGB Conc 36 g/dL (31-36); Mean Corpuscular Hemoglobin 33 pg (27-31); Mean Corpuscular Volume 91 fL (80-94); Mean Platelet Volume 6.9 fL (7.4-10.4); Platelet Count 219 10^3/uL (150-450); Red Blood Count 3.52 10^6 /uL (4.18-5.48); Red Cell Distribution Width 14 % (10-15); White Blood Count 5.9 10^3/uL (3.5-10.8)
[2020-06-09 08:21] LABS: INR 1.64 (0.82-1.09)
[2020-06-09 08:31] LABS: Albumin 4.5 g/dL (3.2-5.2); Albumin/Globulin Ratio 1.3 (1-3); BUN/Creatinine Ratio 12.2 (8-20); Calcium 9.6 mg/dL (8.6-10.3); EGFR African American 55.5 (>60); EGFR Non-African American 45.8 (>60); Globulin 3.6 g/dL (2-4); Magnesium 1.8 mg/dL (1.9-2.7); Potassium 4.2 mmol/L (3.5-5.0); Total Bilirubin 0.7 mg/dL (0.2-1.0); Total Protein 8.1 g/dL (6.4-8.9)
[2020-06-09 08:33] LABS: Influenza A Molecular Negative (Negative); Influenza B Molecular Negative (Negative); Troponin I 0.01 ng/mL (<0.03)
[2020-06-09] MEDS ORDERED: Furosemide 40 mg/4 ml IV VIAL IV ONE ×3 (09:21→17:00)
[2020-06-09] MEDS ORDERED: ICOSAPENT ETHYL 2 GM PO SCH (12:00)
[2020-06-09] MEDS ORDERED: Dextrose 50% Syringe 50 ml 25 GM/50 ML SYRINGE IV PUSH PRN (12:02)
[2020-06-09] MEDS ORDERED: Magnesium Sulfate 2 gm BAG 2 GM/50 ML BAG IVPB ONE (12:18)
[2020-06-09 12:44] LABS: C Reactive Protein 3.59 mg/L (<8.01)
[2020-06-09] MEDS: CMC: Fenofibrate 145 mg TAB (NF) PO SCH (15:14)
[2020-06-09] MEDS: PRASUGREL 5 MG PO SCH (15:15)
[2020-06-09] MEDS ORDERED: Insulin GLARGINE 100 un/ml 10 ml VIAL SUBCUT SCH (21:00)
[2020-06-09] MEDS: CMC: Ranolazine 500 mg TAB (NF) PO SCH (21:04)
[2020-06-10 06:39] LABS: ABS Basophils 0.1 10^3/ul (0-0.2); ABS Eosinophils 0.2 10^3/ul (0-0.6); ABS Lymphocytes 0.8 10^3/ul (1.0-4.8); ABS Monocytes 0.9 10^3/ul (0-0.8); ABS Neutrophils 2.8 10^3/ul (1.5-7.7); Eosinophil % 3.4 %; Hematocrit 30 % (42-52); Hemoglobin 10.5 g/dL (14.0-18.0); Lymphocyte % 16.8 %; Mean Corpuscular HGB Conc 35 g/dL (31-36); Mean Corpuscular Hemoglobin 32 pg (27-31); Mean Corpuscular Volume 91 fL (80-94); Mean Platelet Volume 6.9 fL (7.4-10.4); Platelet Count 204 10^3/uL (150-450); Red Blood Count 3.26 10^6 /uL (4.18-5.48); Red Cell Distribution Width 14 % (10-15); White Blood Count 4.6 10^3/uL (3.5-10.8)
[2020-06-10 06:56] LABS: BUN/Creatinine Ratio 13.4 (8-20); Calcium 8.9 mg/dL (8.6-10.3); EGFR Non-African American 45.5 (>60); Magnesium 2.1 mg/dL (1.9-2.7); Potassium 3.9 mmol/L (3.5-5.0)
[2020-06-10 07:46] VITALS: BP 129/53
[2020-06-10] MEDS: CMC: Ranolazine 500 mg TAB (NF) PO SCH (08:41)
[2020-06-10] MEDS: PRASUGREL 5 MG PO SCH (08:42)
[2020-06-10] MEDS: CMC: Fenofibrate 145 mg TAB (NF) PO SCH (08:43)
== END 2020-06-10 13:05 | disposition home or self-care (01) ==
LOC: ED 07:24 → MEDTELE 07:24
PROVIDERS: ADMIT Internal Medicine; ATTEND Internal Medicine

== ENCOUNTER 2020-07-08 15:13 | Inpatient (IN) ==
[2020-07-08 16:04] LABS: Hematocrit 38 % (42-52); Mean Corpuscular HGB Conc 35 g/dL (31-36); Mean Corpuscular Hemoglobin 31 pg (27-31); Mean Corpuscular Volume 91 fL (80-94); Platelet Count 272 10^3/uL (150-450); Red Blood Count 4.17 10^6 /uL (4.18-5.48); Red Cell Distribution Width 14 % (10-15); White Blood Count 15.6 10^3/uL (3.5-10.8)
[2020-07-08 16:17] LABS: Albumin 4.4 g/dL (3.2-5.2); Albumin/Globulin Ratio 1.2 (1-3); BUN/Creatinine Ratio 16.9 (8-20); Calcium 9.8 mg/dL (8.6-10.3); EGFR African American 48.6 (>60); EGFR Non-African American 40.2 (>60); Globulin 3.8 g/dL (2-4); Total Bilirubin 0.6 mg/dL (0.2-1.0); Total Protein 8.2 g/dL (6.4-8.9)
[2020-07-08 16:55] LABS: ABS Basophils 0.1 10^3/ul (0-0.2); ABS Eosinophils 0.1 10^3/ul (0-0.6); ABS Monocytes 1.7 10^3/ul (0-0.8); ABS Neutrophils 12.8 10^3/ul (1.5-7.7); Eosinophil % 0.5 %; Lymphocyte % 6.3 %
[2020-07-08 17:06] LABS: Urine Appearance Cloudy; Urine Bilirubin Negative (Negative); Urine Blood 1+ (Negative); Urine Color Yellow; Urine Glucose Negative (Negative); Urine Ketones Negative (Negative); Urine Nitrite Positive (Negative); Urine Protein 2+(100 mg/dL) (Negative); Urine Specific Gravity 1.014 (1.010-1.030); Urine Urobilinogen Negative (Negative)
[2020-07-08] MEDS ORDERED: cefTRIAXone 1 gm/50 mL NS BAG 1 GM/50 ML BAG IV ONE (17:09)
[2020-07-08 17:12] LABS: Urine Bacteria 1+ (Absent); Urine Red Blood Cell 3+(>10/hpf) (Absent); Urine Squamous Epithelial Cell Present (Absent); Urine White Blood Cell 3+(>20/hpf) (Absent)
[2020-07-08] MEDS ORDERED: NS 0.9% 1000 ml BAG 1,000 ML IV ONE (20:02)
[2020-07-08] MEDS ORDERED: NS 0.9% 1000 ml BAG 1,000 ML IV SCH (23:45)
[2020-07-09 07:07] LABS: ABS Basophils 0.1 10^3/ul (0-0.2); ABS Eosinophils 0.1 10^3/ul (0-0.6); ABS Lymphocytes 0.8 10^3/ul (1.0-4.8); ABS Monocytes 1.3 10^3/ul (0-0.8); ABS Neutrophils 12.5 10^3/ul (1.5-7.7); Eosinophil % 0.5 %; Hematocrit 36 % (42-52); Hemoglobin 12.2 g/dL (14.0-18.0); Lymphocyte % 5.5 %; Mean Corpuscular HGB Conc 34 g/dL (31-36); Mean Corpuscular Hemoglobin 31 pg (27-31); Mean Corpuscular Volume 91 fL (80-94); Mean Platelet Volume 6.7 fL (7.4-10.4); Platelet Count 249 10^3/uL (150-450); Red Blood Count 3.97 10^6 /uL (4.18-5.48); Red Cell Distribution Width 14 % (10-15); White Blood Count 14.8 10^3/uL (3.5-10.8)
[2020-07-09 07:22] LABS: BUN/Creatinine Ratio 15.4 (8-20); Calcium 9.1 mg/dL (8.6-10.3); EGFR African American 57.7 (>60); EGFR Non-African American 47.7 (>60)
[2020-07-09] MEDS: CMCS: Ranolazine 500 mg TAB (NF) PO SCH ×2 (08:12→19:42)
[2020-07-09] MEDS ORDERED: Dextrose 50% Syringe 50 ml 25 GM/50 ML SYRINGE IV PUSH PRN (12:07)
[2020-07-09] MEDS: cefTRIAXone 1 gm/50 mL NS BAG 1 GM/50 ML BAG IVPB SCH (16:54)
[2020-07-09] MEDS: Insulin GLARGINE 100 un/ml 10 ml VIAL SUBCUT SCH ×2 (19:39→23:41)
[2020-07-10 06:20] LABS: Hematocrit 35 % (42-52); Hemoglobin 12.2 g/dL (14.0-18.0); Mean Corpuscular HGB Conc 35 g/dL (31-36); Mean Corpuscular Hemoglobin 31 pg (27-31); Mean Corpuscular Volume 90 fL (80-94); Mean Platelet Volume 6.8 fL (7.4-10.4); Platelet Count 230 10^3/uL (150-450); Red Blood Count 3.89 10^6 /uL (4.18-5.48); Red Cell Distribution Width 14 % (10-15); White Blood Count 8.8 10^3/uL (3.5-10.8)
[2020-07-10 06:41] LABS: BUN/Creatinine Ratio 13.8 (8-20); Calcium 8.9 mg/dL (8.6-10.3); EGFR African American 56.8 (>60); EGFR Non-African American 46.9 (>60); Potassium 3.9 mmol/L (3.5-5.0)
[2020-07-10] MEDS: CMCS: Ranolazine 500 mg TAB (NF) PO SCH ×2 (09:36→23:01)
[2020-07-10] MEDS: cefTRIAXone 1 gm/50 mL NS BAG 1 GM/50 ML BAG IVPB SCH (17:52)
[2020-07-10] MEDS: Insulin GLARGINE 100 un/ml 10 ml VIAL SUBCUT SCH (23:00)
[2020-07-11 04:53] LABS: BUN/Creatinine Ratio 14.9 (8-20); EGFR African American 47.9 (>60); EGFR Non-African American 39.6 (>60); Potassium 4.3 mmol/L (3.5-5.0)
[2020-07-11] MEDS: CMCS: Ranolazine 500 mg TAB (NF) PO SCH ×2 (10:28→21:13)
[2020-07-11] MEDS: cefTRIAXone 1 gm/50 mL NS BAG 1 GM/50 ML BAG IVPB SCH (17:34)
[2020-07-11] MEDS: Insulin GLARGINE 100 un/ml 10 ml VIAL SUBCUT SCH (21:15)
[2020-07-12 07:18] LABS: ABS Eosinophils 0.1 10^3/ul (0-0.6); ABS Lymphocytes 0.5 10^3/ul (1.0-4.8); ABS Monocytes 0.9 10^3/ul (0-0.8); Eosinophil % 1.5 %; Hematocrit 36 % (42-52); Hemoglobin 12.8 g/dL (14.0-18.0); Lymphocyte % 11.6 %; Mean Corpuscular HGB Conc 35 g/dL (31-36); Mean Corpuscular Hemoglobin 31 pg (27-31); Mean Corpuscular Volume 89 fL (80-94); Mean Platelet Volume 7.1 fL (7.4-10.4); Nucleated Red Blood Cells % 0.1; Platelet Count 265 10^3/uL (150-450); Red Blood Count 4.09 10^6 /uL (4.18-5.48); Red Cell Distribution Width 13 % (10-15); White Blood Count 4.6 10^3/uL (3.5-10.8)
[2020-07-12 07:37] LABS: Calcium 9.1 mg/dL (8.6-10.3); EGFR African American 42.1 (>60); EGFR Non-African American 34.8 (>60); Potassium 3.7 mmol/L (3.5-5.0)
[2020-07-12] MEDS: CMCS: Ranolazine 500 mg TAB (NF) PO SCH (08:47)
[2020-07-12 12:04] VITALS: BP 128/60
[2020-07-12] MEDS ORDERED: Polyethylene Glycol 3350 17 GM PACKET PO PRN (15:22)
== END 2020-07-12 18:04 | disposition home or self-care (01) | DRG 690 ==
LOC: MED 15:13 → ED 15:13 → MED 19:58 → MEDTELE 07-11 16:32
PROVIDERS: ADMIT Internal Medicine; ATTEND Internal Medicine

== ENCOUNTER 2020-10-14 04:42 | Inpatient (IN) ==
[2020-10-14] MEDS ORDERED: Piperacillin/Tazobac ADVAN 3.375 GM in NS 0.9% 100 ml BAG 100 ML IV ONE (05:10)
[2020-10-14 05:48] LABS: ABS Basophils 0.1 10^3/ul (0-0.2); ABS Eosinophils 0.2 10^3/ul (0-0.6); ABS Lymphocytes 0.9 10^3/ul (1.0-4.8); ABS Neutrophils 8.9 10^3/ul (1.5-7.7); Eosinophil % 1.8 %; Hematocrit 32 % (42-52); Lymphocyte % 8.3 %; Mean Corpuscular HGB Conc 34 g/dL (31-36); Mean Corpuscular Hemoglobin 31 pg (27-31); Mean Corpuscular Volume 89 fL (80-94); Mean Platelet Volume 7.3 fL (7.4-10.4); Platelet Count 277 10^3/uL (150-450); Red Blood Count 3.61 10^6 /uL (4.18-5.48); Red Cell Distribution Width 15 % (10-15); White Blood Count 11.1 10^3/uL (3.5-10.8)
[2020-10-14 06:08] LABS: ALT 12 U/L (7-52); Albumin 4.2 g/dL (3.2-5.2); Albumin/Globulin Ratio 1.1 (1-3); Alkaline Phosphatase 10 U/L (34-104); BUN/Creatinine Ratio 18.8 (8-20); Blood Urea Nitrogen 35 mg/dL (6-24); C Reactive Protein 27.18 mg/L (<8.01); CO2 Carbon Dioxide 27 mmol/L (22-32); Calcium 9.6 mg/dL (8.6-10.3); Chloride 97 mmol/L (101-111); EGFR African American 42.5 (>60); EGFR Non-African American 35.1 (>60); Glucose 153 mg/dL (70-100); Sodium 134 mmol/L (135-145); Total Protein 8.2 g/dL (6.4-8.9)
[2020-10-14 06:30] LABS: Anion Gap 10 mmol/L (2-11)
[2020-10-14] MEDS: NS 0.9% 1000 ml BAG 2,000 ML IV ONE (06:32)
[2020-10-14 06:41] LABS: Lipase 10 U/L (11.0-82.0)
[2020-10-14] MEDS ORDERED: Iodixanol (CONTRAST) 320 MG/ML 100 ML SDV IV ONE (06:51)
[2020-10-14 07:03] LABS: Potassium Redraw 3.8 mmol/L (3.5-5.0)
[2020-10-14] MEDS ORDERED: Furosemide 100 mg/10 ml IV VIAL IV ONE (07:33)
[2020-10-14 07:50] LABS: Urine Appearance Cloudy; Urine Bilirubin Negative (Negative); Urine Blood Negative (Negative); Urine Color Yellow; Urine Glucose Negative (Negative); Urine Ketones Negative (Negative); Urine Nitrite Positive (Negative); Urine Protein Negative (Negative); Urine Specific Gravity 1.024 (1.002-1.030); Urine Urobilinogen Negative (Negative)
[2020-10-14 07:58] LABS: Urine Bacteria 1+ (Absent); Urine Red Blood Cell 1+(3-5/hpf) (Absent); Urine Squamous Epithelial Cell Present (Absent); Urine White Blood Cell 3+(>20/hpf) (Absent)
[2020-10-14] MEDS ORDERED: Al Hydrox/Mg Hydrox/Simet LIQ 30 ML UDC PO PRN (08:45)
[2020-10-14] MEDS ORDERED: Ondansetron 4 mg VIAL 2 MG/ML 2 ml VIAL IV PRN (08:45)
[2020-10-14] MEDS ORDERED: Metoprolol Tartrate 5 mg VIAL 5 ml VIAL (1 mg/ml) IV ONE (08:53)
[2020-10-14 09:26] LABS: Troponin I 0.03 ng/mL (<0.03)
[2020-10-14] MEDS ORDERED: Dextrose 50% Syringe 50 ml 25 GM/50 ML SYRINGE IV PUSH PRN (10:29)
[2020-10-14] MEDS: Potassium Chlor 20 meq TAB.ER PO SCH (11:16)
[2020-10-14] MEDS ORDERED: metroNIDAZOLE IV 500 MG/100ML 500 MG/100 ML BAG IVPB SCH (11:30)
[2020-10-14] MEDS: cefTRIAXone 1 gm/50 mL NS BAG 1 GM/50 ML BAG IVPB SCH (11:42)
[2020-10-14] MEDS: CMCS:Ranolazine 500 mg TAB (NF) PO SCH ×2 (11:42→20:15)
[2020-10-14 11:47] LABS: TSH Ultra Thyroid Stim Horm 2.54 mcIU/mL (0.34-5.60)
[2020-10-14] MEDS ORDERED: Perflutren Lipid Microsphere 3 ML VIAL ONE (12:03)
[2020-10-14] MEDS ORDERED: Heparin 5000 UNITS/ML 1 mL VIAL SUBCUT SCH (14:00)
[2020-10-14] MEDS ORDERED: Metoprolol Tartrate 5 mg VIAL 5 ml VIAL (1 mg/ml) IV PRN (14:22)
[2020-10-14 15:17] LABS: Troponin I 0.34 ng/mL (<0.03)
[2020-10-14 17:35] LABS: Anion Gap 9 mmol/L (2-11); BUN/Creatinine Ratio 15.7 (8-20); Blood Urea Nitrogen 28 mg/dL (6-24); CO2 Carbon Dioxide 29 mmol/L (22-32); Calcium 9.1 mg/dL (8.6-10.3); Chloride 97 mmol/L (101-111); EGFR African American 44.7 (>60); Glucose 143 mg/dL (70-100); Potassium 3.7 mmol/L (3.5-5.0); Sodium 135 mmol/L (135-145)
[2020-10-14 17:39] LABS: Troponin I 0.51 ng/mL (<0.03)
[2020-10-14] MEDS: Insulin GLARGINE 100 un/ml 10 ml VIAL SUBCUT SCH (20:15)
[2020-10-15 05:47] LABS: ABS Basophils 0.1 10^3/ul (0-0.2); ABS Eosinophils 0.1 10^3/ul (0-0.6); ABS Lymphocytes 1.1 10^3/ul (1.0-4.8); ABS Monocytes 1.1 10^3/ul (0-0.8); ABS Neutrophils 6.1 10^3/ul (1.5-7.7); Eosinophil % 1.2 %; Hematocrit 28 % (42-52); Hemoglobin 9.6 g/dL (14.0-18.0); Lymphocyte % 13.3 %; Mean Corpuscular HGB Conc 34 g/dL (31-36); Mean Corpuscular Hemoglobin 31 pg (27-31); Mean Corpuscular Volume 89 fL (80-94); Mean Platelet Volume 7.7 fL (7.4-10.4); Platelet Count 222 10^3/uL (150-450); Red Blood Count 3.12 10^6 /uL (4.18-5.48); Red Cell Distribution Width 14 % (10-15); White Blood Count 8.5 10^3/uL (3.5-10.8)
[2020-10-15 05:48] LABS: INR 2.27 (0.82-1.09)
[2020-10-15 05:58] LABS: ALT 9 U/L (7-52); AST 13 U/L (13-39); Albumin 3.8 g/dL (3.2-5.2); Alkaline Phosphatase 15 U/L (34-104); Anion Gap 10 mmol/L (2-11); BUN/Creatinine Ratio 14.9 (8-20); Blood Urea Nitrogen 28 mg/dL (6-24); C Reactive Protein 139.45 mg/L (<8.01); CO2 Carbon Dioxide 27 mmol/L (22-32); Calcium 9.2 mg/dL (8.6-10.3); Chloride 98 mmol/L (101-111); EGFR Non-African American 34.7 (>60); Globulin 3.7 g/dL (2-4); Glucose 140 mg/dL (70-100); Indirect Bilirubin 0.7 mg/dL (0.3-1.0); Potassium 3.6 mmol/L (3.5-5.0); Sodium 135 mmol/L (135-145); Total Protein 7.5 g/dL (6.4-8.9)
[2020-10-15 06:02] LABS: Troponin I 0.39 ng/mL (<0.03)
[2020-10-15] MEDS: Potassium Chlor 20 meq TAB.ER PO SCH (08:20)
[2020-10-15] MEDS: CMCS:Ranolazine 500 mg TAB (NF) PO SCH ×2 (08:21→21:29)
[2020-10-15] MEDS: CMCS: Prasugrel 5 MG TAB (NF) PO SCH (08:21)
[2020-10-15] MEDS ORDERED: Furosemide 40 mg/4 ml IV VIAL IV ONE (08:44)
[2020-10-15] MEDS: cefTRIAXone 1 gm/50 mL NS BAG 1 GM/50 ML BAG IVPB SCH (11:36)
[2020-10-15 14:59] LABS: % Iron Saturation 5 % (15-55); Iron 23 ug/dL (50-212); Total Iron Binding Capacity 440 mcg/dL (250-450); Transferrin 314 mg/dL (203-362); Unsaturated Iron Binding < 425 ug/dL
[2020-10-15 15:15] LABS: Ferritin 171.5 ng/mL (24-336)
[2020-10-15] MEDS: Insulin GLARGINE 100 un/ml 10 ml VIAL SUBCUT SCH (21:30)
[2020-10-16 05:55] LABS: ABS Basophils 0.1 10^3/ul (0-0.2); ABS Eosinophils 0.3 10^3/ul (0-0.6); ABS Lymphocytes 1.1 10^3/ul (1.0-4.8); ABS Monocytes 0.8 10^3/ul (0-0.8); ABS Neutrophils 4.1 10^3/ul (1.5-7.7); Eosinophil % 4.1 %; Hematocrit 27 % (42-52); Hemoglobin 9.1 g/dL (14.0-18.0); Lymphocyte % 18.1 %; Mean Corpuscular HGB Conc 33 g/dL (31-36); Mean Corpuscular Hemoglobin 30 pg (27-31); Mean Corpuscular Volume 91 fL (80-94); Mean Platelet Volume 7.7 fL (7.4-10.4); Platelet Count 216 10^3/uL (150-450); Red Blood Count 3.01 10^6 /uL (4.18-5.48); Red Cell Distribution Width 14 % (10-15); White Blood Count 6.3 10^3/uL (3.5-10.8)
[2020-10-16 06:01] LABS: BUN/Creatinine Ratio 18.4 (8-20); Calcium 9.1 mg/dL (8.6-10.3); EGFR African American 42.8 (>60); EGFR Non-African American 35.4 (>60); Magnesium 2.1 mg/dL (1.9-2.7); Potassium 3.8 mmol/L (3.5-5.0)
[2020-10-16] MEDS: Potassium Chlor 20 meq TAB.ER PO SCH (08:36)
[2020-10-16] MEDS ORDERED: Furosemide 40 mg/4 ml IV VIAL IV ONE (08:36)
[2020-10-16] MEDS: CMCS: Prasugrel 5 MG TAB (NF) PO SCH (08:37)
[2020-10-16] MEDS: CMCS:Ranolazine 500 mg TAB (NF) PO SCH ×2 (08:37→20:50)
[2020-10-16] MEDS ORDERED: Iron Sucrose 200 MG in NS 0.9% 100 ml BAG 100 ML IVPB ONE (10:30)
[2020-10-16] MEDS: cefTRIAXone 1 gm/50 mL NS BAG 1 GM/50 ML BAG IVPB SCH (12:04)
[2020-10-16] MEDS: Insulin GLARGINE 100 un/ml 10 ml VIAL SUBCUT SCH (20:49)
[2020-10-17 05:31] LABS: ABS Basophils 0.1 10^3/ul (0-0.2); ABS Eosinophils 0.4 10^3/ul (0-0.6); ABS Lymphocytes 0.9 10^3/ul (1.0-4.8); ABS Monocytes 0.6 10^3/ul (0-0.8); ABS Neutrophils 3.4 10^3/ul (1.5-7.7); Eosinophil % 7.4 %; Hematocrit 28 % (42-52); Hemoglobin 9.3 g/dL (14.0-18.0); Lymphocyte % 16.4 %; Mean Corpuscular HGB Conc 34 g/dL (31-36); Mean Corpuscular Hemoglobin 30 pg (27-31); Mean Corpuscular Volume 89 fL (80-94); Mean Platelet Volume 7.8 fL (7.4-10.4); Platelet Count 226 10^3/uL (150-450); Red Blood Count 3.09 10^6 /uL (4.18-5.48); Red Cell Distribution Width 14 % (10-15); White Blood Count 5.3 10^3/uL (3.5-10.8)
[2020-10-17 05:48] LABS: BUN/Creatinine Ratio 18.4 (8-20); Calcium 8.9 mg/dL (8.6-10.3); EGFR African American 55.8 (>60); EGFR Non-African American 46.1 (>60); Potassium 3.6 mmol/L (3.5-5.0)
[2020-10-17] MEDS: CMCS:Ranolazine 500 mg TAB (NF) PO SCH ×2 (10:02→21:03)
[2020-10-17] MEDS: Potassium Chlor 20 meq TAB.ER PO SCH (10:03)
[2020-10-17] MEDS: CMCS: Prasugrel 5 MG TAB (NF) PO SCH (10:03)
[2020-10-17] MEDS: cefTRIAXone 1 gm/50 mL NS BAG 1 GM/50 ML BAG IVPB SCH (12:06)
[2020-10-17] MEDS: Insulin GLARGINE 100 un/ml 10 ml VIAL SUBCUT SCH (21:02)
[2020-10-18 05:00] LABS: ABS Basophils 0.1 10^3/ul (0-0.2); ABS Eosinophils 0.4 10^3/ul (0-0.6); ABS Lymphocytes 0.8 10^3/ul (1.0-4.8); ABS Monocytes 0.6 10^3/ul (0-0.8); ABS Neutrophils 3.6 10^3/ul (1.5-7.7); Eosinophil % 6.9 %; Hematocrit 28 % (42-52); Hemoglobin 9.7 g/dL (14.0-18.0); Lymphocyte % 15.2 %; Mean Corpuscular HGB Conc 34 g/dL (31-36); Mean Corpuscular Hemoglobin 30 pg (27-31); Mean Corpuscular Volume 89 fL (80-94); Mean Platelet Volume 7.6 fL (7.4-10.4); Platelet Count 270 10^3/uL (150-450); Red Blood Count 3.19 10^6 /uL (4.18-5.48); Red Cell Distribution Width 14 % (10-15); White Blood Count 5.6 10^3/uL (3.5-10.8)
[2020-10-18 05:21] LABS: BUN/Creatinine Ratio 17.5 (8-20); Calcium 9.2 mg/dL (8.6-10.3); EGFR African American 57.6 (>60); EGFR Non-African American 47.6 (>60); Potassium 3.9 mmol/L (3.5-5.0)
[2020-10-18] MEDS: CMCS:Ranolazine 500 mg TAB (NF) PO SCH (10:14)
[2020-10-18] MEDS: CMCS: Prasugrel 5 MG TAB (NF) PO SCH (10:16)
[2020-10-18] MEDS: Potassium Chlor 20 meq TAB.ER PO SCH (10:17)
[2020-10-18 12:42] LABS: C Reactive Protein 49.27 mg/L (<8.01)
[2020-10-18 12:48] VITALS: BP 97/59
== END 2020-10-18 16:35 | disposition home health service (06) | DRG 280 ==
LOC: ED 04:42 → SUATTDRO 08:45 → MEDTELE 08:45
PROVIDERS: ADMIT Pediatrics; ATTEND Internal Medicine

== ENCOUNTER 2022-01-06 01:16 | Inpatient (IN) ==
[2022-01-06 01:43] LABS: ABS Basophils 0.1 10^3/ul (0-0.2); ABS Eosinophils 0.1 10^3/ul (0-0.6); ABS Lymphocytes 0.9 10^3/ul (1.0-4.8); ABS Monocytes 0.7 10^3/ul (0-0.8); ABS Neutrophils 7.4 10^3/ul (1.5-7.7); Eosinophil % 0.6 %; Hematocrit 29 % (42-52); Lymphocyte % 10.1 %; Mean Corpuscular HGB Conc 34 g/dL (31-36); Mean Corpuscular Hemoglobin 30 pg (27-31); Mean Corpuscular Volume 90 fL (80-94); Mean Platelet Volume 7.9 fL (7.4-10.4); Platelet Count 181 10^3/uL (150-450); Red Blood Count 3.29 10^6 /uL (4.18-5.48); Red Cell Distribution Width 19 % (10-15); White Blood Count 9.2 10^3/uL (3.5-10.8)
[2022-01-06] MEDS ORDERED: Morphine 4 MG/ML VIAL (1 ml) IV PRN (01:59)
[2022-01-06] MEDS ORDERED: Morphine 4 MG/ML VIAL (1 ml) IV ONE (01:59)
[2022-01-06 02:29] LABS: Albumin/Globulin Ratio 1.1 (1-3); C Reactive Protein 4.11 mg/L (<8.01); Globulin 3.5 g/dL (2-4); Potassium 4.3 mmol/L (3.5-5.0); Total Bilirubin 0.5 mg/dL (0.2-1.0); Total Protein 7.5 g/dL (6.4-8.9); eGFR CKD-EPI 59.6 (>60)
[2022-01-06 03:11] LABS: High Sensitivity Troponin 1 Hr 93 pg/mL (<20)
[2022-01-06] MEDS ORDERED: Iohexol 300 (CONTRAST) 10 ML SDV IV ONE (04:21)
[2022-01-06 07:27] LABS: High Sensitivity Troponin 3 Hr 922 pg/mL (<20)
[2022-01-06] MEDS ORDERED: Heparin DRIP 25,000 UNITS BAG 25,000 UNITS/500 ML BAG IV SCH (08:15)
[2022-01-06 08:16] LABS: Urine Appearance Cloudy; Urine Bilirubin Negative (Negative); Urine Blood Negative (Negative); Urine Color Yellow; Urine Glucose 3+(>=500 mg/dL) (Negative); Urine Ketones Trace (Negative); Urine Nitrite Positive (Negative); Urine Protein Negative (Negative); Urine Urobilinogen Negative (Negative)
[2022-01-06 08:22] LABS: Urine Bacteria 1+ (Absent); Urine Red Blood Cell 1+(3-5/hpf) (Absent); Urine Squamous Epithelial Cell Present (Absent); Urine White Blood Cell 3+(>20/hpf) (Absent)
[2022-01-06 08:29] LABS: HDL Cholesterol 25.9 mg/dL
[2022-01-06] MEDS ORDERED: Dextrose 50% Syringe 50 ml 25 GM/50 ML SYRINGE IV PUSH PRN (08:55)
[2022-01-06] MEDS ORDERED: Isosorbide Mononit ER 30mg TAB PO ONE (08:58)
[2022-01-06] MEDS ORDERED: Potassium Chloride LIQUID 20 MEQ/15 ML LIQUID PO SCH (09:00)
[2022-01-06] MEDS ORDERED: Heparin 5000 UNITS/ML 1 mL VIAL IV PRN (09:00)
[2022-01-06] MEDS ORDERED: Al Hydrox/Mg Hydrox/Simet LIQ 30 ML UDC PO PRN (11:18)
[2022-01-06] MEDS ORDERED: Insulin GLARGINE 100 un/ml 10 ml VIAL SUBCUT SCH (21:00)
[2022-01-07 06:39] LABS: ABS Basophils 0.1 10^3/ul (0-0.2); ABS Eosinophils 0.1 10^3/ul (0-0.6); ABS Lymphocytes 1.3 10^3/ul (1.0-4.8); ABS Monocytes 0.8 10^3/ul (0-0.8); ABS Neutrophils 4.3 10^3/ul (1.5-7.7); Eosinophil % 2.2 %; Hematocrit 24 % (42-52); Hemoglobin 8.3 g/dL (14.0-18.0); Lymphocyte % 19.2 %; Mean Corpuscular HGB Conc 35 g/dL (31-36); Mean Corpuscular Hemoglobin 31 pg (27-31); Mean Corpuscular Volume 91 fL (80-94); Platelet Count 145 10^3/uL (150-450); Red Blood Count 2.65 10^6 /uL (4.18-5.48); Red Cell Distribution Width 20 % (10-15); White Blood Count 6.6 10^3/uL (3.5-10.8)
[2022-01-07 07:08] LABS: Digoxin 1.4 ng/ml (0.8-2.0)
[2022-01-07 07:10] LABS: CKMB ng/mL 7.3 ng/mL (0.6-6.3)
[2022-01-07] MEDS ORDERED: Aspirin EC 81 mg TAB.EC (enteric coated) PO SCH (09:00)
[2022-01-07] MEDS ORDERED: Isosorbide Mononit ER 30mg TAB PO SCH (09:00)
[2022-01-07 11:14] VITALS: BP 114/53
== END 2022-01-07 15:10 | disposition home or self-care (01) | DRG 280 ==
LOC: ED 01:16 → EDHOLD 07:57 → MEDTELE 13:20
PROVIDERS: ADMIT Hospitalist; ATTEND Hospitalist

== ENCOUNTER 2022-01-11 01:01 | Observation (INO) ==
[2022-01-11 04:08] LABS: ABS Basophils 0.1 10^3/ul (0-0.2); ABS Eosinophils 0.2 10^3/ul (0-0.6); ABS Lymphocytes 1.1 10^3/ul (1.0-4.8); ABS Monocytes 0.6 10^3/ul (0-0.8); ABS Neutrophils 4.5 10^3/ul (1.5-7.7); Eosinophil % 2.9 %; Hematocrit 25 % (42-52); Hemoglobin 8.2 g/dL (14.0-18.0); Lymphocyte % 16.6 %; Mean Corpuscular HGB Conc 33 g/dL (31-36); Mean Corpuscular Hemoglobin 30 pg (27-31); Mean Corpuscular Volume 91 fL (80-94); Mean Platelet Volume 8.6 fL (7.4-10.4); Platelet Count 168 10^3/uL (150-450); Red Cell Distribution Width 18 % (10-15); White Blood Count 6.4 10^3/uL (3.5-10.8)
[2022-01-11 04:15] LABS: Activated Partial Thrombo Time 32.1 seconds (26.0-38.0); INR 1.69 (0.86-1.15)
[2022-01-11 04:31] LABS: Albumin 3.9 g/dL (3.2-5.2); Albumin/Globulin Ratio 1.2 (1-3); C Reactive Protein 9.7 mg/L (<8.01); Calcium 10.6 mg/dL (8.6-10.3); Globulin 3.2 g/dL (2-4); Potassium 4.1 mmol/L (3.5-5.0); Total Bilirubin 0.6 mg/dL (0.2-1.0); Total Protein 7.1 g/dL (6.4-8.9); eGFR CKD-EPI 50.9 (>60)
[2022-01-11 06:38] LABS: Urine Appearance Cloudy; Urine Bilirubin Negative (Negative); Urine Blood Negative (Negative); Urine Color Yellow; Urine Glucose 2+(150 mg/dL) (Negative); Urine Ketones Trace (Negative); Urine Nitrite Positive (Negative); Urine Protein Negative (Negative); Urine Specific Gravity 1.013 (1.002-1.030); Urine Urobilinogen Negative (Negative)
[2022-01-11 06:47] LABS: Urine Bacteria 1+ (Absent); Urine Red Blood Cell Trace(0-2/hpf) (Absent); Urine White Blood Cell 3+(>20/hpf) (Absent)
[2022-01-11] MEDS ORDERED: Pantoprazole VIAL 40 MG VIAL IV ONE (07:05)
[2022-01-11] MEDS ORDERED: NS 0.9% 1000 ml BAG 1,000 ML IV SCH (07:15)
[2022-01-11] MEDS ORDERED: Cefepime 1 GM in Dextrose 1 GM/50 ML BAG IV ONE (08:00)
[2022-01-11 09:30] LABS: Digoxin 0.8 ng/ml (0.8-2.0); Magnesium 1.6 mg/dL (1.9-2.7)
[2022-01-11 09:46] LABS: TSH Ultra Thyroid Stim Horm 6.48 mcIU/mL (0.34-5.60)
[2022-01-11] MEDS ORDERED: Magnesium Sulfate IV 3 GM in NS 0.9% 100 ml BAG 100 ML IVPB ONE (09:47)
[2022-01-11] MEDS ORDERED: Dextrose 50% Syringe 50 ml 25 GM/50 ML SYRINGE IV PUSH PRN (09:56)
[2022-01-11] MEDS ORDERED: NS 0.9% 100 ml BAG 100 ML ONE (10:23)
[2022-01-11] MEDS: Aspirin EC 81 mg TAB.EC (enteric coated) PO SCH (10:28)
[2022-01-11] MEDS ORDERED: Magnesium Sulfate 2 GM IV (Premix) IVPB ONE (12:00)
[2022-01-11] MEDS: Isosorbide Mononit ER 30mg TAB PO SCH (12:10)
[2022-01-11] MEDS ORDERED: Magnesium Sulfate 1 GM IV 1 GM/100 ML BAG IV ONE (13:00)
[2022-01-11 15:12] LABS: ABS Basophils 0.1 10^3/ul (0-0.2); ABS Eosinophils 0.2 10^3/ul (0-0.6); ABS Lymphocytes 1.1 10^3/ul (1.0-4.8); ABS Monocytes 0.7 10^3/ul (0-0.8); ABS Neutrophils 4.7 10^3/ul (1.5-7.7); Eosinophil % 3.4 %; Hematocrit 23 % (42-52); Hemoglobin 7.7 g/dL (14.0-18.0); Lymphocyte % 15.5 %; Mean Corpuscular HGB Conc 33 g/dL (31-36); Mean Corpuscular Hemoglobin 30 pg (27-31); Mean Corpuscular Volume 91 fL (80-94); Mean Platelet Volume 8.3 fL (7.4-10.4); Nucleated Red Blood Cells % 0.1; Platelet Count 173 10^3/uL (150-450); Red Blood Count 2.56 10^6 /uL (4.18-5.48); Red Cell Distribution Width 19 % (10-15); White Blood Count 6.8 10^3/uL (3.5-10.8)
[2022-01-11] MEDS: Insulin GLARGINE 100 un/ml 10 ml VIAL SUBCUT SCH (21:49)
[2022-01-11] MEDS: Pantoprazole VIAL 40 MG VIAL IV SCH (21:50)
[2022-01-12 05:23] LABS: ABS Basophils 0.1 10^3/ul (0-0.2); ABS Eosinophils 0.2 10^3/ul (0-0.6); ABS Lymphocytes 1.2 10^3/ul (1.0-4.8); ABS Monocytes 0.6 10^3/ul (0-0.8); ABS Neutrophils 4.7 10^3/ul (1.5-7.7); Eosinophil % 3.5 %; Hematocrit 23 % (42-52); Hemoglobin 7.6 g/dL (14.0-18.0); Lymphocyte % 17.5 %; Mean Corpuscular HGB Conc 33 g/dL (31-36); Mean Corpuscular Hemoglobin 30 pg (27-31); Mean Corpuscular Volume 92 fL (80-94); Mean Platelet Volume 8.4 fL (7.4-10.4); Platelet Count 173 10^3/uL (150-450); Red Blood Count 2.52 10^6 /uL (4.18-5.48); Red Cell Distribution Width 19 % (10-15); White Blood Count 6.8 10^3/uL (3.5-10.8)
[2022-01-12 05:58] LABS: Calcium 9.4 mg/dL (8.6-10.3); Magnesium 1.9 mg/dL (1.9-2.7); Potassium 4.2 mmol/L (3.5-5.0); eGFR CKD-EPI 63.3 (>60)
[2022-01-12 06:16] LABS: Free T4 0.94 ng/dL (0.61-1.12)
[2022-01-12 06:19] LABS: Ferritin 41.7 ng/mL (24-336)
[2022-01-12] MEDS: Pantoprazole VIAL 40 MG VIAL IV SCH ×2 (08:48→22:19)
[2022-01-12] MEDS: Aspirin EC 81 mg TAB.EC (enteric coated) PO SCH (08:48)
[2022-01-12] MEDS: Isosorbide Mononit ER 30mg TAB PO SCH (08:48)
[2022-01-12 12:27] LABS: Hematocrit 23 % (42-52); Hemoglobin 7.5 g/dL (14.0-18.0)
[2022-01-12 15:09] LABS: ABS Basophils 0.1 10^3/ul (0-0.2); ABS Eosinophils 0.2 10^3/ul (0-0.6); ABS Lymphocytes 1.1 10^3/ul (1.0-4.8); ABS Monocytes 0.7 10^3/ul (0-0.8); ABS Neutrophils 3.8 10^3/ul (1.5-7.7); Eosinophil % 3.2 %; Hematocrit 22 % (42-52); Hemoglobin 7.2 g/dL (14.0-18.0); Lymphocyte % 18.7 %; Mean Corpuscular HGB Conc 32 g/dL (31-36); Mean Corpuscular Hemoglobin 30 pg (27-31); Mean Corpuscular Volume 91 fL (80-94); Mean Platelet Volume 8.2 fL (7.4-10.4); Nucleated Red Blood Cells % 0.1; Platelet Count 167 10^3/uL (150-450); Red Blood Count 2.46 10^6 /uL (4.18-5.48); Red Cell Distribution Width 18 % (10-15); White Blood Count 5.8 10^3/uL (3.5-10.8)
[2022-01-12] MEDS: Insulin GLARGINE 100 un/ml 10 ml VIAL SUBCUT SCH (21:23)
[2022-01-12 21:30] LABS: Hematocrit 24 % (42-52); Hemoglobin 7.6 g/dL (14.0-18.0)
[2022-01-12] MEDS ORDERED: Insulin GLARGINE 100 un/ml 10 ml VIAL SUBCUT SCH (22:00)
[2022-01-13 05:42] LABS: ABS Basophils 0.1 10^3/ul (0-0.2); ABS Eosinophils 0.3 10^3/ul (0-0.6); ABS Lymphocytes 1.3 10^3/ul (1.0-4.8); ABS Monocytes 0.9 10^3/ul (0-0.8); ABS Neutrophils 4.7 10^3/ul (1.5-7.7); Eosinophil % 3.8 %; Hematocrit 25 % (42-52); Hemoglobin 8.1 g/dL (14.0-18.0); Lymphocyte % 17.8 %; Mean Corpuscular HGB Conc 33 g/dL (31-36); Mean Corpuscular Hemoglobin 30 pg (27-31); Mean Corpuscular Volume 91 fL (80-94); Mean Platelet Volume 8.6 fL (7.4-10.4); Platelet Count 180 10^3/uL (150-450); Red Blood Count 2.75 10^6 /uL (4.18-5.48); Red Cell Distribution Width 18 % (10-15); White Blood Count 7.2 10^3/uL (3.5-10.8)
[2022-01-13 06:07] LABS: Calcium 8.9 mg/dL (8.6-10.3); Magnesium 1.7 mg/dL (1.9-2.7); Potassium 3.7 mmol/L (3.5-5.0)
[2022-01-13 07:20] VITALS: BP 118/61
[2022-01-13] MEDS: Isosorbide Mononit ER 30mg TAB PO SCH (08:25)
[2022-01-13] MEDS: Pantoprazole VIAL 40 MG VIAL IV SCH (08:25)
[2022-01-13] MEDS: Aspirin EC 81 mg TAB.EC (enteric coated) PO SCH (08:25)
== END 2022-01-13 16:25 | disposition home or self-care (01) ==
LOC: ED 01:01 → EDHOLD 01:01 → SUATTDRO 08:41 → EDHOLD 10:20 → MED 10:57
PROVIDERS: ADMIT Internal Medicine; ATTEND Hospitalist